=== PATIENT | female | born 1995 | race Caucasian/White ===

== ENCOUNTER → 2018-06-10 16:42 | Outpatient (CLI) | payer OTHER, SELFPAY | PROVIDERS: Family Provider Family Medicine; PCP Family Medicine; Visit Provider Family Medicine | DX: R55 Syncope and collapse (principal) | CPT/HCPCS: 36415; 84443 ==

== ENCOUNTER → 2018-11-25 | Outpatient (CLI) | payer OTHER, SELFPAY ==
[2018-11-25 15:42] LABS: Absolute Lymphocyte Count 1.49 X10^3/ul (0.83-4.51); Absolute Neutrophil Count 3.5 X10^3/uL (2.0-7.7); Basophil# 0.01 X10^3/uL; Basophil% 0.2 % (0-1); Eosinophil# 0.13 X10^3/uL; Eosinophils% 2.4 % (0-5); Hematocrit 40.6 % (37-47); Hemoglobin 13.6 g/dl (12.0-15.0); Lymphocyte # 1.49 X10^3/ul (4.0); Lymphocyte % 27.1 % (19-41); Mean Corp Hgb Conc 33.5 g/gl (32-36); Mean Corpuscular Hgb 29.7 pg (27.0-32.0); Mean Corpuscular Volume 88.6 fL (81-99); Mean Platelet Vol. 8.7 fl (6.2-12.0); Monocyte# 0.41 X10^3/uL; Monocyte% 7.5 % (0-10); Neutrophil # 3.45 X10^3/uL (2.7-7.7); Neutrophil % 62.6 % (47-70); Platelet Count 416 K/mm3 (150-450); RBC Distribution Width CV 12.1 % (11.6-14.6); RBC Distribution Width SD 38.7 fl (35.1-43.9); Red Blood Count 4.58 M/mm3 (4.2-5.4); White Blood Count 5.5 K/mm3 (4.4-11.0)
[2018-11-25 15:43] LABS: AST(SGOT) 17 U/L (15-37); Alanine Aminotransfer ALT/SGPT 19 U/L (13-56); Albumin, Serum 3.9 g/dL (3.2-5.0); Alkaline Phosphatase 95 U/L (45-117); Anion Gap 9 (5-15); BUN 12 mg/dL (7-18); BUN/Creat Ratio 11.9 RATIO (10-20); CRP < 2.90 mg/L (0.0-3.0); Calcium,Total 8.8 mg/dL (8.5-10.1); Chloride 103 mmol/L (98-107); Creatinine, Serum 1.01 mg/dL (0.55-1.02); EST Glomerular Filtration Rate 72 mL/min (>60); Est Glom Filt Rate - Afr Amer 87 mL/min (>60); Globulin 3.8 g/dL (2.2-4.2); Glucose 84 mg/dL (74-106); POSITIVE COUNT NO; POSITIVE DIFFERENTIAL NO; POSITIVE MORPHOLOGY NO; Potassium 4.1 mmol/L (3.5-5.1); Protein, Total 7.7 g/dL (6.4-8.2); Sodium Level 138 mmol/L (136-145)
[2018-11-25 15:44] LABS: hCG Titer Quant., Serum < 1 mIU/mL (1-3)
== END | disposition home or self-care (01) ==
LOC: BFHLAB 12:00
PROVIDERS: Family Provider Family Medicine; PCP Family Medicine; Visit Provider Family Medicine
DX: R11.0 Nausea (principal); R10.9 Unspecified abdominal pain
CPT/HCPCS: 36415; 80053; 84702; 85025; 86140

== ENCOUNTER → 2019-08-09 | Outpatient (CLI) | payer OTHER, SELFPAY | END | disposition home or self-care (01) | LOC: LABSPEC 16:29 | PROVIDERS: PCP Family Medicine; Referring Provider Family Medicine; Visit Provider Family Medicine | DX: R50.9 Fever, unspecified (principal); R05 Cough | CPT/HCPCS: 87633 ==

== ENCOUNTER → 2020-03-01 13:58 | Outpatient (CLI) | payer OTHER, SELFPAY ==
[2020-03-01 15:40] LABS: Absolute Lymphocyte Count 1.76 X10^3/uL (0.83-4.51); Absolute Neutrophil Count 2.5 X10^3/uL (2.0-7.7); Basophil# 0.03 X10^3/uL; Basophil% 0.6 % (0-1); Eosinophil# 0.29 X10^3/uL; Eosinophils% 5.8 % (0-5); Hematocrit 38.3 % (37-47); Hemoglobin 12.1 g/dL (12.0-15.0); Lymphocyte # 1.76 X10^3/ul (4.0); Lymphocyte % 35.2 % (19-41); Mean Corp Hgb Conc 31.6 g/dL (32-36); Mean Corpuscular Hgb 27.7 pg (27.0-32.0); Mean Corpuscular Volume 87.6 fL (81-99); Mean Platelet Vol. 9.4 fl (6.2-12.0); Monocyte# 0.41 X10^3/uL; Monocyte% 8.2 % (0-10); NRBC Flagged by Analyzer 0 % (0-5); Platelet Count 438 K/mm3 (150-450); RBC Distribution Width CV 13.7 % (11.6-14.6); RBC Distribution Width SD 44.4 fl (35.1-43.9); Red Blood Count 4.37 M/mm3 (4.2-5.4)
[2020-03-01 16:25] LABS: Color, Urine Yellow (Yellow); Glucose, Dipstick Normal (Normal); Ketone-Dipstick 5 mg/dl (Negative); Leukocyte Esterase-Dipstick 100 /ul (Negative); Nitrite-Dipstick Negative (Negative); Occult Blood-Urine 10 /ul (Negative); Protein-Dipstick 15 mg/dl (Negative); Urine Bilirubin Dipstick Negative (Negative); Urine Clarity Sl. Cloudy (Clear); Urine Urobilinogen Normal (Normal)
[2020-03-01 18:08] LABS: Chlamydia Trachomatis by PCR Negative (Negative); Neisserai gonorrhoeae by PCR Negative (Negative); Probe Check PASS; Sample Adequacy Control PASS; Specimen Processing Control PASS
[2020-03-02 09:40] LABS: HIV - WCH Non-Reactive (Nonreactive); Hepatitis B Surface Antigen Non-Reactive (Nonreactive); Hepatitis C Antibody Non-Reactive (Nonreactive); Rubella IgG 55.5 IU/mL
[2020-03-08 01:33] LABS: Prenatal RPR NONREACTIVE (NONREACTIVE)
== END ==
PROVIDERS: PCP Family Medicine; Visit Provider Obstetrics & Gynecology
DX: Z34.81 Encounter for supervision of other normal pregnancy, first trimester (principal); Z11.3 Encounter for screening for infections with a predominantly sexual mode of transmission
CPT/HCPCS: 36415; 81002; 85025; 86703; 86762; 86803; 87077; 87086; 87088; 87186; 87340; 87491; 87591

== ENCOUNTER → 2020-03-05 10:51 | Outpatient (CLI) | payer OTHER, SELFPAY ==
[2020-03-05 11:48] LABS: hCG Titer Quant., Serum 189 mIU/mL (1-3)
== END ==
PROVIDERS: PCP Family Medicine; Visit Provider Obstetrics & Gynecology
DX: O20.0 Threatened abortion (principal); Z3A.00 Weeks of gestation of pregnancy not specified
CPT/HCPCS: 36415; 84702

== ENCOUNTER → 2020-03-07 09:19 | Outpatient (CLI) | payer OTHER, SELFPAY ==
[2020-03-07 10:50] LABS: hCG Titer Quant., Serum 76 mIU/mL (1-3)
== END ==
PROVIDERS: PCP Family Medicine; Visit Provider Obstetrics & Gynecology
DX: O20.0 Threatened abortion (principal); Z3A.00 Weeks of gestation of pregnancy not specified
CPT/HCPCS: 36415; 84702

== ENCOUNTER → 2020-03-09 13:56 | Outpatient (CLI) | payer OTHER, SELFPAY ==
[2020-03-09 15:39] LABS: hCG Titer Quant., Serum 33 mIU/mL (1-3)
== END ==
PROVIDERS: PCP Family Medicine; Visit Provider Obstetrics & Gynecology
DX: O20.0 Threatened abortion (principal); Z3A.00 Weeks of gestation of pregnancy not specified
CPT/HCPCS: 36415; 84702

== ENCOUNTER → 2020-03-15 16:00 | Outpatient (CLI) | payer OTHER, SELFPAY ==
[2020-03-15 16:18] LABS: Hematocrit 39.7 % (37-47); Hemoglobin 12.7 g/dL (12.0-15.0); Mean Corpuscular Volume 87.6 fL (81-99); Mean Platelet Vol. 8.4 fl (6.2-12.0); Platelet Count 398 K/mm3 (150-450); RBC Distribution Width CV 13.4 % (11.6-14.6); RBC Distribution Width SD 42.7 fl (35.1-43.9); Red Blood Count 4.53 M/mm3 (4.2-5.4); White Blood Count 5.1 K/mm3 (4.4-11.0)
[2020-03-15 17:29] LABS: hCG Titer Quant., Serum 6 mIU/mL (1-3)
[2020-03-15 17:36] LABS: Anion Gap 6 (5-15); BUN 9 mg/dL (7-18); BUN/Creat Ratio 10.1 RATIO (10-20); Calcium,Total 9.1 mg/dL (8.5-10.1); Chloride 107 mmol/L (98-107); EST Glomerular Filtration Rate 82 mL/min (>60); Est Glom Filt Rate - Afr Amer 99 mL/min (>60); Glucose 90 mg/dL (74-106); Potassium 3.5 mmol/L (3.5-5.1); Sodium Level 140 mmol/L (136-145); T4 Free Direct 0.88 ng/dL (0.76-1.46); Thyroid Stim Hormone (TSH) 1.39 uIU/mL (0.358-3.74)
== END ==
PROVIDERS: PCP Family Medicine; Visit Provider Obstetrics & Gynecology
CPT/HCPCS: 36415; 80048; 84439; 84443; 84702; 85027

== ENCOUNTER 2020-03-24 21:25 | Emergency (ER) | payer OTHER, SELFPAY ==
[2020-03-24 21:26] VITALS: BP 159/96; PULSE 88; RESP 16; TEMP 36.2; O2SAT 100; BMI 23.8
--- NOTE | 2020-03-24 21:34 | RAD_ITS ---
STUDY: X-RAY - RIGHT WRIST REASON FOR EXAM: Female, 25 years old. Trauma pain TECHNIQUE: 3 view(s) of the wrist were obtained. COMPARISON: None. FINDINGS: The bones of the wrist are intact and located. Mineralization is normal. Soft tissues are intact. RAD/Wrist min 3 Views IMPRESSION: 1. Unremarkable wrist. Electronically Signed: Juanito Gabriel, at 21:55 EDT Tel , Service support ,
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
--- NOTE | 2020-03-24 21:40 | RAD_ITS ---
STUDY: X-RAY - RIGHT HAND REASON FOR EXAM: Female, 25 years old. Trauma pain in the hand TECHNIQUE: 3 view(s) of the hand. COMPARISON: None. FINDINGS: Normal radiocarpal articulation. Normal distal radioulnar joint. Normal visualized carpal bones. Normal carpal articulations Normal carpometacarpal articulation of the thumb. Normal second through fifth carpometacarpal joints. Normal metacarpi. Normal metacarpophalangeal joint of the thumb. Normal interphalangeal joint of the thumb. Normal proximal and distal phalanges of the thumb. Normal metacarpophalangeal joints of the second through fifth fingers. Normal proximal and distal interphalangeal joints of the second through fifth fingers. Normal phalanges of the second through fifth fingers. The soft tissue structures are unremarkable. RAD/Hand Min 3 Views IMPRESSION: Normal x-ray examination of the hand. Electronically Signed: Juanito Gabriel, at 21:55 EDT Tel , Service support ,
== END 2020-03-24 22:15 | disposition home or self-care (01) ==
LOC: ED 22:21
PROVIDERS: Emergency Provider Emergency Medicine; PCP Family Medicine
DX: S63.501A Unspecified sprain of right wrist, initial encounter (principal); V40.6XXA Car passenger injured in collision with pedestrian or animal in traffic accident, initial encounter; Y93.9 Activity, unspecified; Y92.9 Unspecified place or not applicable; M79.7 Fibromyalgia; L40.50 Arthropathic psoriasis, unspecified; Z79.899 Other long term (current) drug therapy
CPT/HCPCS: 73110; 73130; 99282

== ENCOUNTER → 2020-04-03 14:10 | Outpatient (CLI) | payer OTHER, SELFPAY ==
[2020-03-24 21:26] VITALS: BMI 23.8
[2020-04-03 17:26] LABS: hCG Titer Quant., Serum 130 mIU/mL (1-3)
== END ==
PROVIDERS: PCP Family Medicine; Visit Provider Family Medicine
DX: N91.2 Amenorrhea, unspecified (principal)
CPT/HCPCS: 36415; 84702

== ENCOUNTER → 2020-04-05 14:10 | Outpatient (CLI) | payer OTHER, SELFPAY ==
[2020-03-24 21:26] VITALS: BMI 23.8
[2020-04-05 17:41] LABS: hCG Titer Quant., Serum 416 mIU/mL (1-3)
== END ==
PROVIDERS: PCP Family Medicine; Visit Provider Family Medicine
DX: N91.2 Amenorrhea, unspecified (principal)
CPT/HCPCS: 36415; 84702

== ENCOUNTER → 2020-04-12 15:21 | Outpatient (CLI) | payer OTHER, SELFPAY ==
[2020-03-24 21:26] VITALS: BMI 23.8
[2020-04-12 16:39] LABS: hCG Titer Quant., Serum 3580 mIU/mL (1-3)
== END ==
PROVIDERS: PCP Family Medicine; Visit Provider Obstetrics & Gynecology
DX: O20.0 Threatened abortion (principal); Z3A.00 Weeks of gestation of pregnancy not specified
CPT/HCPCS: 36415; 84702

== ENCOUNTER → 2020-04-14 09:28 | Outpatient (CLI) | payer OTHER, SELFPAY ==
[2020-03-24 21:26] VITALS: BMI 23.8
[2020-04-14 10:59] LABS: hCG Titer Quant., Serum 3406 mIU/mL (1-3)
== END ==
PROVIDERS: PCP Family Medicine; Referring Provider Obstetrics & Gynecology; Visit Provider Obstetrics & Gynecology
DX: O20.0 Threatened abortion (principal); Z3A.00 Weeks of gestation of pregnancy not specified
CPT/HCPCS: 36415; 84702

== ENCOUNTER → 2020-04-17 08:51 | Outpatient (CLI) | payer OTHER, SELFPAY ==
[2020-03-24 21:26] VITALS: BMI 23.8
[2020-04-17 14:18] LABS: hCG Titer Quant., Serum 4133 mIU/mL (1-3)
== END ==
PROVIDERS: PCP Family Medicine; Visit Provider Obstetrics & Gynecology
DX: O20.0 Threatened abortion (principal); Z3A.00 Weeks of gestation of pregnancy not specified
CPT/HCPCS: 36415; 84702

== ENCOUNTER → 2020-04-24 | Outpatient (CLI) | payer OTHER, SELFPAY ==
[2020-04-26 03:07] LABS: Chlamydia By Nucleic Acid AMP Negative (Negative)
[2020-04-26 08:41] LABS: Gonococcus By Nucleic Acid AMP Negative (Negative)
== END | disposition home or self-care (01) ==
LOC: LABSPEC 11:44
PROVIDERS: PCP Family Medicine; Visit Provider Obstetrics & Gynecology
DX: Z11.3 Encounter for screening for infections with a predominantly sexual mode of transmission (principal)
CPT/HCPCS: 87491; 87591

== ENCOUNTER 2020-04-28 04:19 | Emergency (ER) | payer OTHER, SELFPAY ==
[2020-04-28 04:20] VITALS: BP 120/81; PULSE 100; RESP 18; TEMP 36.8; O2SAT 98; BMI 23.9
--- NOTE | 2020-04-28 04:38 | US_ITS ---
STUDY: FIRST TRIMESTER OBSTETRICAL ULTRASOUND REASON FOR EXAM: Female, 25 years old bleeding -hcg 4112 LMP: 03/12/2020 TECHNIQUE: Transvaginal TECHNICAL QUALITY: Adequate. PRIOR ULTRASOUND: None. FINDINGS: There is no demonstrated intrauterine gestational sac. The estimated gestation age (EGA) by LMP is 6 weeks, 5 days. The estimated date of delivery (NINFA) by LMP is 12/17/2020. The uterus measures 9.3 x 6.1 x 4.3 cm.. There is no demonstrated uterine fibroid. The cervix is closed. Endometrium is thickened up to 1.7 cm. There is no visualized intrauterine . There is a small cystic low attenuation towards the cervix/endometrial canal measuring 2.7 mm which may represent a small nabothian cysts The right ovary measures 1.9 x 1.9 x 1.2 cm. There is no right ovarian cyst. There is no visualized right adnexal mass or complex lesion. The left ovary measures 3.0 x 1.9 x 1.9 cm. There is no left ovarian cyst. There is no visualized left adnexal mass or complex lesion. There is no fluid in the cul de sac. US/Transvaginal w/Preg US IMPRESSION: At the time of this study there is no visualized intrauterine . Endometrium is thickened up to 1.7 cm. Thickened endometrium can be associated with early intrauterine in the appropriate setting however it should be noted that the history describes a confirmed IUP at doctor''s office which is not definitively identified on this study. A small nabothian cyst suggested recommend correlation with beta hCG. Electronically Signed: Columba Potter MD at 6:24 EST Tel , Service support ,
--- NOTE | 2020-04-28 04:40 | ED.VISSUMM ---
- ER Visit Summary Date of Service: 04/28/20 Chief Complaint: Vaginal bleeding in approximately 6 weeks History of Present Illness: The patient is a 25 F reportedly 6 weeks . Started having light vaginal bleeding on on . Stopped on Thursday. Then resumed and is heavier today. With small clots. Mild cramping. No dysuria. No fever. No other complaints. Patient is G3, P1 with 1 prior miscarriage March this year. She denies any discharge. Physical Examination: Young female no acute distress. Vital signs stable afebrile. H EENT exam unremarkable. Neck nontender. Lungs clear to auscultation bilaterally. Heart regular rhythm no murmur. Abdomen soft nontender normal bowel sounds no peritoneal signs. Moving all 4 extremities. No edema. Neurologically awake and alert with no focal motor deficits. Pelvic exam done female nurse present in room. Speculum exam shows blood with a few clots and what appears to be tissue in the vaginal vault. This was extracted and will be sent to the lab. There is no bright red blood or active bleeding. On bimanual exam there was no uterine or adnexal tenderness. Test Results: Prior labs show blood type of O+. Quantitative hCG was 4112. Previously on April 17 it was 4133. TA TV pelvic ultrasound read by the radiologist shows no IUP. Thickened endometrium. Findings consistent with a spontaneous miscarriage. Emergency Department Course and Treatment: Concern for miscarriage. Pelvic ultrasound is being ordered. Quantitative hCG pending. Treatment Plan: Follow-up with her WINDOW DRAPER. Tylenol Motrin for pain. Plenty of fluids. Return if heavy bleeding, fever or feeling worse. I spoke to Dr. Stacy No at 6:55 AM university relations vice president for [employer]. They will follow the patient up. Disposition: Discharge Impression: Spontaneous miscarriage at approximately 6 - 7 weeks This note was generated with [employer] dictation software. It may contain incorrect words, spelling, and punctuation that were not noted in review of the chart prior to signing ED Disposition - Plan for ED Patient: Disposition: Home or Assisted Living Instructions: Miscarriage Referrals: Uriah No MD [STAFF PHYSICIAN] - As soon as possible Additional Instructions: Tylenol and/or Motrin for pain. Plenty of fluids and rest. Call follow-up with your WINDOW DRAPER physician on Thursday. Return to the emergency department if heavy vaginal bleeding, fever or feeling worse. You will have some more bleeding until this is completed.
[2020-04-28 05:21] LABS: hCG Titer Quant., Serum 4112 mIU/mL (1-3)
--- NOTE | 2020-04-28 06:04 | DCINST.ED_ITS ---
ED Disposition - Plan for ED Patient: Disposition: Home or Assisted Living Instructions: Miscarriage Referrals: Uriah No MD [STAFF PHYSICIAN] - As soon as possible Additional Instructions: Tylenol and/or Motrin for pain. Plenty of fluids and rest. Call follow-up with your SENIOR ENGINEERING TECHNICIAN physician on Thursday. Return to the emergency department if heavy vaginal bleeding, fever or feeling worse. You will have some more bleeding until this is completed.
--- NOTE | 2020-04-28 06:45 | ED.DEP ---
ED Disposition - Plan for ED Patient: Disposition: Home or Assisted Living Instructions: Miscarriage Referrals: Uriah No MD [STAFF PHYSICIAN] - As soon as possible Additional Instructions: Tylenol and/or Motrin for pain. Plenty of fluids and rest. Call follow-up with your ANIMAL MAINTENANCE SUPERVISOR physician on Thursday. Return to the emergency department if heavy vaginal bleeding, fever or feeling worse. You will have some more bleeding until this is completed.
[2020-04-28 06:58] VITALS: BP 108/76; PULSE 59; RESP 16; O2SAT 100
== END 2020-04-28 07:06 | disposition home or self-care (01) ==
PROVIDERS: Emergency Provider Emergency Medicine; PCP Family Medicine
DX: O03.9 Complete or unspecified spontaneous abortion without complication (principal); F41.9 Anxiety disorder, unspecified; F32.9 Major depressive disorder, single episode, unspecified; L40.50 Arthropathic psoriasis, unspecified; Z79.899 Other long term (current) drug therapy
CPT/HCPCS: 76817; 84702; 99282

== ENCOUNTER → 2020-05-08 16:16 | Outpatient (CLI) | payer OTHER, SELFPAY ==
[2020-04-28 04:20] VITALS: BMI 23.9
[2020-05-08 17:40] LABS: Hematocrit 37.7 % (37-47); Hemoglobin 12.4 g/dL (12.0-15.0); Mean Corp Hgb Conc 32.9 g/dL (32-36); Mean Corpuscular Hgb 29.1 pg (27.0-32.0); Mean Corpuscular Volume 88.5 fL (81-99); Mean Platelet Vol. 9.2 fl (6.2-12.0); Platelet Count 424 K/mm3 (150-450); RBC Distribution Width SD 38.5 fl (35.1-43.9); Red Blood Count 4.26 M/mm3 (4.2-5.4); White Blood Count 7.1 K/mm3 (4.4-11.0)
[2020-05-08 18:56] LABS: hCG Titer Quant., Serum 50 mIU/mL (1-3)
[2020-05-08 19:05] LABS: T4 Free Direct 1.04 ng/dL (0.76-1.46); Thyroid Stim Hormone (TSH) 1.65 uIU/mL (0.358-3.74)
== END ==
PROVIDERS: PCP Family Medicine; Visit Provider Obstetrics & Gynecology
DX: O03.9 Complete or unspecified spontaneous abortion without complication (principal); R53.83 Other fatigue
CPT/HCPCS: 36415; 84439; 84443; 84702; 85027

== ENCOUNTER → 2020-05-31 | Outpatient (CLI) | payer OTHER, SELFPAY ==
--- NOTE | 2020-06-02 | CYST_PTH ---
PATIENT: JORJE FLOWER LOC: [facility] U#:[id number] AGE/SX: 25/F ROOM: RE05/31/[address]: Dr. Tamar Haji DO : 1995 BED: DIS: 05/31/2020 SPEC #: [id number] RECD: 06/04/20 07:56 STATUS: JANEL CELIO #: [id number] [facility]ITA: 06/02/20 00:[address]: Tamar Haji DEPT: SURGICAL PATHOLOGY RECD BY: Neftali Braswell ENTERED: 06/04/20 07:57 SP TYPE: Cyst OTHR DR: Dr. Samira Germain MD Tissues: CYST Procedures: Surgery Specimen Level III HEADER OPERATION: Excision right posterior scapula PRE-OP DIAGNOSIS: Basal cell vs sebaceous cyst TISSUE SUBMITTED: Right posterior scapula MICROSCOPIC DIAGNOSIS Right posterior scapula lesion, excisional biopsy: Ruptured epidermal inclusion cyst with associated chronic inflammation and foreign body giant cell reaction. SJ:manuel 06/05/2020 MICROSCOPIC DESCRIPTION Slides are reviewed. GROSS DESCRIPTION Received in fixative is one container labeled with the patient's name and designated right posterior scapula. The specimen consists of an irregular fragment of espinal skin measuring 1.3 x 0.5 cm. No cutaneous lesions are identified. The specimen is inked, bisected along its long axis and totally submitted in one cassette. / AM:manuel 06/04/2020 TC:5 CPT: 45694
== END | disposition home or self-care (01) ==
LOC: LABSPEC 07:35
PROVIDERS: PCP Family Medicine; Referring Provider Family Medicine; Visit Provider Family Medicine
DX: L72.0 Epidermal cyst (principal)
CPT/HCPCS: 88304

== ENCOUNTER → 2020-07-16 13:38 | Outpatient (CLI) | payer OTHER, SELFPAY ==
[2020-07-16 15:38] LABS: hCG Titer Quant., Serum < 1 mIU/mL (1-3)
== END ==
PROVIDERS: PCP Family Medicine; Visit Provider Family Medicine
DX: N91.2 Amenorrhea, unspecified (principal)
CPT/HCPCS: 36415; 84702

== ENCOUNTER 2020-09-01 12:12 | Emergency (ER) | payer OTHER, SELFPAY ==
[2020-09-01 12:13] VITALS: BP 124/72; PULSE 89; RESP 17; TEMP 36.7; O2SAT 96; BMI 24.0
--- NOTE | 2020-09-01 12:41 | RAD_ITS ---
EXAM: XR CERVICAL SPINE, 2 OR 3 VIEWS CLINICAL INDICATION: felt a pop in the neck this morning when she stretched, neck pain and stiffness now TECHNIQUE: Frontal and lateral views of the cervical spine. This report was created using [employer] report [employer] technology. COMPARISON: None. FINDINGS: VERTEBRAE: Mild straightening of the C-spine curve. Preserved vertebral body height. No acute fracture. No spondylolisthesis. No significant facet arthropathy. DISC SPACES: Unremarkable. Disc spaces are maintained. SOFT TISSUES: Unremarkable. No prevertebral soft tissue widening. LUNG APICES: Clear. RAD/Cerv Spine 2 or 3 Views IMPRESSION: Mild straightening of the cervical spine curve otherwise normal C-spine radiographs. Electronically Signed: Berry Turner MD at 13:08 EDT , Service support ,
[2020-09-01] MEDS: Naproxen 500 MG Tablet PO (12:47)
--- NOTE | 2020-09-01 13:41 | ED.VISSUMM ---
- ER Visit Summary Date of Service: 09/01/20 Chief Complaint: Neck pain History of Present Illness: The patient is a 25 F who presents with neck pain that began today. Patient states her pain is sharp. Patient states pain is over the left side of her neck. Patient states she was stretching this morning when she got out of bed and felt a pop. Patient states her pain radiates into her left shoulder and trapezius area. Patient states her pain is worse with any movement. Patient states her pain improves whenever she remains still. Patient denies any paresthesias or weakness. Patient is to headache but states she has chronic daily migraine headaches and this is typical. Physical Examination: Vital signs are stable. Patient is afebrile. Patient is in no acute distress. Musculoskeletal exam reveals tenderness over the left cervical paraspinal muscles. There is some mild midline tenderness. There is also tenderness and spasm over the left trapezius muscles. There is no tenderness over the shoulder joint itself. There is no bony crepitance or step-off. There is no edema or ecchymosis. Range of motion was limited in all motions of the cervical spine secondary to pain. Strength is 5/5 bilaterally upper extremities. There are no sensory deficits. Test Results: X-rays of the cervical spine were obtained. There are 3 views. There is no acute fracture or spondylolisthesis. There is some straightening of the cervical lordosis. Radiologist also interpreted the x-ray and agrees. Emergency Department Course and Treatment: Patient was given a dose of Naprosyn here. Patient was advised of her x-ray findings. Patient was instructed use ice to the area. Patient was instructed to do gentle range of motion exercises. Patient was given a prescription for Naprosyn. Patient was instructed to follow-up with her primary care physician in 5 to 7 days. Patient understood and was agreeable with the plan. All questions were answered. Disposition: Discharge home Impression: 1. Acute cervical strain This note was generated with [employer] dictation software. It may contain incorrect words, spelling, and punctuation that were not noted in review of the chart prior to signing ED Disposition - Plan for ED Patient: Disposition: Home or Assisted Living Diagnosis: Acute cervical myofascial strain Instructions: ED Neck Sprain or Strain Prescriptions: Naproxen [Naprosyn] 500 mg PO BID PRN #20 tablet Transmission Status: Pending to [facility] Referrals: Tamar Haji DO [Primary Care Provider] - 5-7 Days
== END 2020-09-01 13:56 | disposition home or self-care (01) ==
PROVIDERS: Emergency Provider Emergency Medicine; PCP Family Medicine
DX: S16.1XXA Strain of muscle, fascia and tendon at neck level, initial encounter (principal); X58.XXXA Exposure to other specified factors, initial encounter; Y93.9 Activity, unspecified; Y92.9 Unspecified place or not applicable; F41.9 Anxiety disorder, unspecified; F32.9 Major depressive disorder, single episode, unspecified; J45.909 Unspecified asthma, uncomplicated; Z79.899 Other long term (current) drug therapy
CPT/HCPCS: 72040; 99282

== ENCOUNTER → 2020-10-23 14:38 | Outpatient (CLI) | payer OTHER, SELFPAY ==
[2020-10-23 16:19] LABS: Absolute Lymphocyte Count 1.08 X10^3/uL (0.83-4.51); Absolute Neutrophil Count 3.7 X10^3/uL (2.0-7.7); Basophil# 0.01 X10^3/uL; Basophil% 0.2 % (0-1); Eosinophil# 0.08 X10^3/uL; Eosinophils% 1.5 % (0-5); Hematocrit 38.7 % (37-47); Hemoglobin 12.5 g/dL (12.0-15.0); Lymphocyte # 1.08 X10^3/ul (0.83-4.51); Lymphocyte % 20.5 % (19-41); Mean Corp Hgb Conc 32.3 g/dL (32-36); Mean Corpuscular Hgb 28.2 pg (27.0-32.0); Mean Corpuscular Volume 87.2 fL (81-99); Mean Platelet Vol. 9.1 fl (6.2-12.0); Monocyte# 0.41 X10^3/uL; Monocyte% 7.8 % (0-10); NRBC Flagged by Analyzer 0 % (0-5); Neutrophil # 3.68 X10^3/uL (2.7-7.7); Neutrophil % 69.6 % (47-70); Platelet Count 418 K/mm3 (150-450); RBC Distribution Width CV 12.1 % (11.6-14.6); RBC Distribution Width SD 38.8 fl (35.1-43.9); Red Blood Count 4.44 M/mm3 (4.2-5.4); White Blood Count 5.3 K/mm3 (4.4-11.0)
[2020-10-23 17:28] LABS: Hemoglobin A1c 5.1 % (3.8-5.6)
[2020-10-24 08:54] LABS: HIV - WCH Non-Reactive (Nonreactive); Hepatitis B Surface Antigen Non-Reactive (Nonreactive); Hepatitis C Antibody Non-Reactive (Nonreactive); Rubella IgG Reactive (Nonreactive); Syphilis Antibodies Non-reactive
[2020-10-26 20:08] LABS: Chlamydia By Nucleic Acid AMP Negative (Negative)
[2020-10-27 14:27] LABS: HPV Reflexed? NOT INDICATED
[2020-10-27 15:08] LABS: Gonococcus By Nucleic Acid AMP Negative (Negative)
== END ==
PROVIDERS: PCP Family Medicine; Visit Provider Obstetrics & Gynecology
DX: Z32.01 Encounter for pregnancy test, result positive (principal); Z12.4 Encounter for screening for malignant neoplasm of cervix; Z11.3 Encounter for screening for infections with a predominantly sexual mode of transmission
CPT/HCPCS: 36415; 83036; 85025; 86703; 86762; 86780; 86803; 87086; 87088; 87340; 87491; 87591; 88175; G0145

== ENCOUNTER 2021-05-15 15:00 | Outpatient (RCR) | payer OTHER, SELFPAY ==
--- NOTE | 2021-05-01 12:58 | HP.PTEVAL ---
Patient's Visit Information JORJE FLOWER is a 26 year old F referred to Physical Therapy by Dr. Uriah No MD with a diagnosis of BACK/PELVIC PAIN. Date of Evaluation: 05/01/21 Physical Therapist: Mariya Ozuna PT, Cert MDT - Visit Plan Frequency: 2-3x /Week Duration: 4-6 Weeks Plan: *POOL NOT COVERED*. START SLOW. POSTURE CORRECTION/STRENGTHENING, INSTRUCTION IN APPROPRIATE BODY MECHANICS AND ACTIVITY MODIFICATIONS. DLS STARTING WITH A NEUTRAL SPINE PROGRESSING ROM TOLERATED. DERREK LE ROM, STRETCHING AND STRENGTHENING. HEP INSTRUCTION. 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 LIVES WITH PARENTS. 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 Disability: NO. Present symptoms: LOW BACK AND PELVIC PAIN. DERREK INTERMITTENT PROX THIGH PAIN. PATIENT DENIES DERREK LE NUMBNESS AND TINGLING. Present since: ABOUT A MONTH AGO. Pain Scale: WORST 7/10, LEAST 2/10. Currently: 2/10. Commenced as a result of: NO APPARENT REASON OTHER THAN . Symptoms at onset: LOW BACK. Worse: STRETCHING - REACHING UP, PICKING UP DAUGHTER (26 LBS), WALKING TOO MUCH, SITTING TOO LONG, STANDING TOO LONG. Better: LYING DOWN. Disturbed sleep: YES. Previous history/Previous treatment: HISTORY OF MILD INTERMITTENT LOW BACK PAIN THAT PATIENT RELATES TO HER PSORIATIC ARTHRITIS AND FIBROMYALGIA BUT DENIES NEEDING PROFESSIONAL TREATMENT FOR IT IN THE PAST. Treatment this episode: NONE. Coughing/sneezing/straining: POSITIVE. Gait: NORMAL UNLESS GOES TOO FAR THEN HAS TO SLOW DOWN AND SOMETIMES CAUSES LIMPING. Difficulty initiating urination: NO. DENIES LOSS OF BOWEL OR BLADDER CONTROL. Accidents: NO. Imaging: NO. PMHRecent major surgery: CHRONIC MIGRAINES, ASTHMA, FIBROMYALGIA, PSORIATIC ARTHRITS. - Objective Sitting/Standing Posture: POOR. Lordosis: NORMAL. Lateral shift: NO. Relevant shift: N/A. Active Correction of posture: WORSE ACTIVELY IN STANDING BUT BETTER PASSIVELY IN SITTING. Other Observations: THIS PATIENT AMBULATES INDEP'LY INTO PT WITHOUT ANY AD'S OR GROSS DEVIATIONS NOTED. Motor deficit: DERREK LE'S GROSSLY 5/5 WITH MMT'ING EXCEPT HIPS GRADED 3+/5 AND LIMITED BY PAIN. Sensory deficit: DERREK LE LIGHT TOUCH SENSATION GROSSLY INTACT AND SYMMETRICAL. ROM deficit: MILD DERREK LE HIP FLEXOR, HS AND GASTROC SOLEUS TIGHTNESS. Reflexes: NORMAL DERREK LE'S. Dural Signs: POSITIVE DERREK LE'S. Lumbar mvmt loss: flex - MOD. ext - MIN. R SG - MOD. L SG - MOD. LBP AT THE END OF THE AVAILABLE ROM ALL PLANES. Core strength: POOR. Palpation: NO ACUTE LUMBAR, PELVIC OR HIP TENDERNESS BUT DOES HAVE TENDERNESS IN THE RIGHT LOWER RIB AREA. OTHER: PATIENT IS GUARDED WITH ALL TESTING TODAY. TREATMENT: NEUROMUSCULAR REEDUCATION - RETRAINING OF MVMT AND POSTURE FOR SITTING, LYING AND STANDING ACTIVITIES. - Balance/Special Test Scores Oswestry Low Back Score: 25 - Goals Goal 1:: DECREASE C/O LOW BACK, PELVIC AND DERREK LE SX'S. Goal Time Frame: 4-6 Weeks Goal 2:: IMPROVE PERSONAL CARE, LIFTING, WALKING, SITTING, STANDING, SLEEP, SOCIAL LIFE, TRAVEL AND WORK/HOMEMAKING FUNCTION. Goal Time Frame: 4-6 Weeks Goal 3:: INSTRUCT IN PROPHYLAXIS - Anticipated Interventions Patient/Client Instruction: Educate patient on: Condition, Plan of Care, Risk Factors For the Purpose of:: To improve self management Therapeutic Exercise to Include: Strength training, Body mechanics, Postural training, Flexibilty training, Neuromotor development, Dynamic Lumbar Stabilization For the Purpose of:: To decrease pain, To improve muscle performance and motor function, To increase tolerance to activity/condition/position Thank you for the opportunity to evaluate your patient. For Medicare and Medicare HMO plans, please review the plan of care and approve it. It will need to be FAXED BACK to us at [phone] for Medicare purposes. For Medicare only, by signing this I certify the plan of care. Please let me know if there are questions or concerns regarding this plan of care. Physician Signature: Date:
--- NOTE | 2021-05-30 13:56 | HP.PT.NRP ---
JORJE FLOWER was seen in my office for initial evaluation on 05/01/21. The following Plan of Care was established for this patient: Initial Frequency: 2-3x /Week Initial Duration: 4-6 Weeks Patient/Client Instruction: Educate patient on: Condition, Plan of Care, Risk Factors For the Purpose of:: To improve self management Therapeutic Exercise to Include: Strength training, Body mechanics, Postural training, Flexibilty training, Neuromotor development, Dynamic Lumbar Stabilization For the Purpose of:: To decrease pain, To improve muscle performance and motor function, To increase tolerance to activity/condition/position This patient was last seen in our office . Pertinent comments regarding their Physical therapy will appear below: This patient has not returned to Physical Therapy and is appropriate to return to MD for further follow-up as needed. At this point I will be discontinuing this patient from physical therapy. I would be happy to see this patient again in the future if found appropriate by the physician. Thank you! Mariya Ozuna, PT, Cert MDT Balance/Gait/Functional tests - Balance/Special Test Scores Oswestry Low Back Score: 25
== END 2021-05-15 19:00 | disposition home or self-care (01) ==
LOC: PT 15:00
PROVIDERS: PCP Family Medicine; Referring Provider Obstetrics & Gynecology; Visit Provider Obstetrics & Gynecology
DX: O26.899 Other specified pregnancy related conditions, unspecified trimester (principal); O99.891 Other specified diseases and conditions complicating pregnancy; M54.9 Dorsalgia, unspecified; R10.2 Pelvic and perineal pain; Z3A.00 Weeks of gestation of pregnancy not specified
CPT/HCPCS: 97110; 97112; 97162; 97530

== ENCOUNTER 2021-06-02 13:20 | Outpatient (CLI) | payer OTHER, SELFPAY ==
[2021-06-02 13:27] VITALS: BP 126/74; PULSE 86; TEMP 36.2; O2SAT 99
[2021-06-02 13:33] VITALS: BMI 24.4
--- NOTE | 2021-06-06 07:55 | OB.TRI.HP_ITS ---
HPI - General HPI Narrative JORJE FLOWER, is a 26 F who presents as term gestation with decreased movement. PFSH PFSH Home Medications buspirone 10 mg PO DAILY 03/24/20 [History Last Taken 06/02/21 00:00] albuterol sulfate 2 puff INHALATION Q6H PRN PRN 04/28/20 [History Last Taken Unknown] albuterol sulfate 2.5 mg INHALATION Q6H PRN PRN 04/28/20 [History Last Taken Unknown] mometasone-formoterol 2 puff IH BID 04/28/20 [History Last Taken Unknown] Prenatabs FA 1 tab PO.IVFORM DAILY 06/02/21 [History Last Taken 06/02/21 00:00] hydroxyzine pamoate [Vistaril] 50 mg PO DAILY 06/02/21 [History Last Taken 06/02/21 00:00] ondansetron HCl [Zofran] 4 mg PO TID PRN 06/02/21 [History Last Taken Unknown] sertraline [Zoloft] 25 mg PO DAILY 06/02/21 [History Last Taken 06/02/21 00:00] Allergy/AdvReac Type Severity Reaction Status Date / Time green pepper Allergy Anaphylaxis Verified 03/24/20 21:29 Penicillins Allergy Hives Verified 03/24/20 21:29 adhesive AdvReac Rash Verified 04/28/20 04:23 fluoxetine [From Sarafem] AdvReac COUGH Verified 04/28/20 04:23 latex AdvReac Rash Verified 04/28/20 04:23 metoclopramide [From Reglan] AdvReac Other Verified 09/01/20 12:13 paroxetine [From Paxil] AdvReac MIGRAINES Verified 04/28/20 04:23 Social History Smoking Status: Never smoker NST FHR Rate Baby A NST Reactive:: Yes FHR Category:: Category I Assessment & Plan (1) Decreased movement during : PLAN: Term intrauterine with decreased movement. Reactive nonstress test. Patient released to home with routine instructions and follow- up.
== END 2021-06-02 23:59 | disposition home or self-care (01) ==
LOC: WPOUT 13:27 → WP 13:27
PROVIDERS: PCP Family Medicine; Visit Provider Obstetrics & Gynecology
DX: O36.8190 Decreased fetal movements, unspecified trimester, not applicable or unspecified (principal); Z3A.00 Weeks of gestation of pregnancy not specified
CPT/HCPCS: 59025; 59050; 99218; G0378

== ENCOUNTER 2021-06-10 17:04 | Inpatient (IN) | payer OTHER, SELFPAY ==
[2021-06-10] VITALS (14 sets, daily range): BP systolic 98–132; BP diastolic 60–82; PULSE 67–102; RESP 16; TEMP 36.5–37.2; O2SAT 100; BMI 24.4
[2021-06-10] MEDS: Lactated Ringers 1,000 ML 50 ML IV (17:10)
--- NOTE | 2021-06-10 17:17 | HP.PCM.OB_ITS ---
History and Physical Date of Admission: 06/10/21 HPI: 26-year-old G4, P1 at 38/6 weeks, NINFA 06/18/2021 by 7-week ultrasound, admitted in active labor. Ports contractions, denies leaking of fluid, vaginal bleeding. Reports movement. Spontaneous rupture of membranes was cervical exam to meconium fluid upon arrival to labor and delivery. Denies headache, vision changes, chest pain or shortness of breath, nausea or vomiting, diarrhea constipation, fevers chills, body aches. complicated by: Bicornuate uterus with and left horn, history of gestational diabetes in prior , history of rapid labor, sister with factor V Leiden and history of PE patient did not have time for testing plan for Lovenox 40 mg daily for 6 weeks. Depression. History of seizures, last 2018 has not seen neurology in a while. 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 Surgical history eye surgery in 2018, left thumb surgery, wisdom teeth extraction in 2011 Allergies: Adhesive causes rash Fluoxetine causes nasal congestion Latex causes rash and itching Paxil causes migraine Penicillin caused rash Reglan causes irritability Medications: Zoloft, Zofran, Vistaril, singulair, dulera Family history: Significant for sister with factor V Leiden and PE Social history: Denies tobacco, alcohol, drug use Review of systems: Negative otherwise stated as above Physical exam: Vital signs General: Uncomfortable with contractions HEENT: Normocephalic/atraumatic, PERRLA Cardiorespiratory: No increased effort, heart rate regular Abdomen: Soft, nontender, gravid Extremities: Minimal edema Neurologic: Cranial nerves II through XII grossly intact Musculoskeletal: Full range of motion and strength 5 out of 5 throughout all extremities Cervical exam: 9 cm per RN, rupture at time of cervical exam meconium fluid panel: GBS neg O pos HIV/Hep B/Hep C neg/neg/neg Rubella immune G/C neg Syphilis neg Labs pending FHR: 150/mod mikael/+accel/no decel [place]: q3 A/P: 26-year-old G4, P1 at 38/6 weeks, NINFA 06/18/2021 by 7-week ultrasound, admitted in active labor. complicated by: Bicornuate uterus with and left horn, history of gestational diabetes in prior , history of rapid labor, sister with factor V Leiden and history of PE patient did not have time for testing plan for Lovenox 40 mg daily for 6 weeks. Depression. History of seizures, last 2018 has not seen neurology in a while. -Admit, routine orders -Planned for 6w PP lovenox 40 mg daily -Continue antidepressant -Asthma - stable, rare use of inhalers -Hx of seizures. None recent
[2021-06-10 17:33] LABS: Absolute Neutrophil Count 7.3 X10^3/uL (2.0-7.7); Basophil# 0.02 X10^3/uL; Basophil% 0.2 % (0-1); Eosinophils% 0.9 % (0-5); Hematocrit 32.1 % (37-47); Hemoglobin 10.3 g/dL (12.0-15.0); Lymphocyte % 21.8 % (19-41); Mean Corp Hgb Conc 32.1 g/dL (32-36); Mean Corpuscular Hgb 25.3 pg (27.0-32.0); Mean Corpuscular Volume 78.9 fL (81-99); Mean Platelet Vol. 9.5 fl (6.2-12.0); Monocyte# 0.75 X10^3/uL; Monocyte% 7.1 % (0-10); NRBC Flagged by Analyzer 0.2 % (0-5); Neutrophil % 69.3 % (47-70); Platelet Count 407 K/mm3 (150-450); RBC Distribution Width CV 14.4 % (11.6-14.6); RBC Distribution Width SD 41.2 fl (35.1-43.9); Red Blood Count 4.07 M/mm3 (4.2-5.4); White Blood Count 10.5 K/mm3 (4.4-11.0)
[2021-06-10] MEDS: Oxytocin 30 units/NS 500 ml 30 UNITS/500 ML IV.SOLN 334 UNITS IV (17:42)
[2021-06-10] MEDS: miSOPROStol 200 MCG Tablet 1000 MCG RC (17:42)
--- NOTE | 2021-06-10 18:03 | EX.PCM.OBRPT ---
Maternal Data Information Final NINFA: 06/18/21 Final NINFA Source: US <20 weeks Vaginal Delivery Maternal Presentation Maternal Presentation: Active Labor and Spontaneous Rupture of Membranes Operative Information Date of Procedure: 06/10/21 Pre-Operative Diagnosis: Active labor, Meconium Fluid Post-Operative Diagnosis: Active labor, Meconium Fluid Surgery / Procedure Performed: Spontaneous Vaginal Delivery Type of Anesthesia: None Estimated Blood Loss: 700cc Findings Description of Procedure: Spontaneous vaginal delivery of viable female. No nuchal cord. Baby to mom. Cord clamped and cut. Spontaneous delivery of placenta. Right labial laceration, lidocaine injected. Repaired in usual fashion, hemostatic. Cytotec 1000 mcg placed rectally. A Gender: Female (1 minute): 9 (5 minute): 9
--- NOTE | 2021-06-10 18:08 | PCM.DC ---
Discharge Instructions Follow Up Care Test Results: Test results from this visit will be discussed in further detail at your follow-up appointment, if applicable. Discharge Plan Admission Admit Date/Time: 06/10/21 17:04 Attending Provider: Lorenza No Primary Care Provider: Tamar Haji Discharge Orders/Prescriptions Prescriptions: New enoxaparin [Lovenox] 40 mg/0.4 mL syringe 40 mg subcut DAILY 42 Days Qty: 16.8 RF: 0 Continued buspirone 5 MG tablet 10 mg PO DAILY RF: 0 albuterol sulfate 2.5 MG/3 ML solution for nebulization 2.5 mg INHALATION Q6H PRN PRN (Reason: SHORT OF BREATH) RF: 0 albuterol sulfate 1 PUFF inhaler 2 puff INHALATION Q6H PRN PRN (Reason: SHORT OF BREATH) RF: 0 mometasone-formoterol 13 GM HFA aerosol inhaler 2 puff IH BID RF: 0 ondansetron HCl 4 mg Tablet 4 mg PO TID PRN (Reason: Nausea) RF: 0 hydroxyzine pamoate [Vistaril] 50 mg Capsule 50 mg PO DAILY RF: 0 sertraline [Zoloft] 25 mg Tablet 25 mg PO DAILY RF: 0 Prenatabs FA 1 tab PO.IVFORM DAILY RF: 0 Referrals / Follow Up: Tamar Haji DO [Primary Care Provider] -
[2021-06-10] MEDS: Ibuprofen 600 MG Tablet PO (23:06)
[2021-06-11 04:00] VITALS: BP 104/66; PULSE 95; RESP 16; TEMP 36.6
[2021-06-11 05:27] LABS: Hematocrit 26.4 % (37-47); Hemoglobin 8.2 g/dL (12.0-15.0); Mean Corp Hgb Conc 31.1 g/dL (32-36); Mean Corpuscular Hgb 24.6 pg (27.0-32.0); Mean Platelet Vol. 9.1 fl (6.2-12.0); Platelet Count 314 K/mm3 (150-450); RBC Distribution Width CV 14.1 % (11.6-14.6); RBC Distribution Width SD 40.3 fl (35.1-43.9); Red Blood Count 3.34 M/mm3 (4.2-5.4); White Blood Count 17.3 K/mm3 (4.4-11.0)
--- NOTE | 2021-06-11 08:10 | PN.OBGYN_ITS ---
Subjective Subjective No overnight complaints. Pain well controlled. Objective Data Objective Data Vital Signs: Vital Signs Temp Pulse Resp BP Pulse Ox 97.8 F 95 16 104/66 100 06/11/21 04:00 06/11/21 04:00 06/11/21 04:00 06/11/21 04:00 06/10/21 23:19 Oxygen Delivery Method Room Air Weight: 142 lb 3.2 oz Body Mass Index (BMI) 24.4 Intake & Output: Intake and Output for Last 24 Hours 06/09/21 06/10/21 06/11/21 23:59 23:59 23:59 Intake Total 1153.72 / 1153.72 Balance 1153.72 / 1153.72 Lab / Micro Data Result Diagrams: 06/11/21 05:15 Labs: Laboratory Results - last 24 hr 06/10/21 17:10: WBC 10.5, RBC 4.07 L, Hgb 10.3 L, Hct 32.1 L, MCV 78.9 L, MCH 25.3 L, MCHC 32.1, RDW Std Deviation 41.2, RDW Coeff of [place] 14.4, Plt Count 407, MPV 9.5, Immature Gran % (Auto) 0.700, Neut % (Auto) 69.3, Lymph % (Auto) 21.8, [place] % (Auto) 7.1, Eos % (Auto) 0.9, Baso % (Auto) 0.2, Absolute Neuts (auto) 7.3, Absolute Lymphs (auto) 2.30, Nucleated RBC % 0.2 06/10/21 17:10: Blood Type O POSITIVE, Antibody Screen NEGATIVE 06/11/21 05:15: WBC 17.3 H, RBC 3.34 L, Hgb 8.2 L, Hct 26.4 L, MCV 79.0 L, MCH 24.6 L, MCHC 31.1 L, RDW Std Deviation 40.3, RDW Coeff of [place] 14.1, Plt Count 314, MPV 9.1 Micro: Microbiology 06/10/21 17:10 Nasal Secretion SARS-CoV-2 Antigen (Rapid) - Final Physical Exam Const alert, oriented x3, no apparent distress, average body habitus, healthy appearing and well nourished Exam Limitations: no limitations HEENT normocephalic and moist oral mucous membranes Head and Scalp: atraumatic Face and Sinus: normal facial exam Neck full ROM Resp normal respiratory effort, no retractions and no use of accessory muscles GI GI Narrative: Soft, nontender, uterus firm and below umbilicus Extremity normal to inspection, full ROM and no clubbing, cyanosis or edema Psych mental status grossly normal, affect normal, speech normal and activity/motor behavior normal Assessment & Plan (1) Vaginal delivery: PLAN: day 1. Breast-feeding. Pain well controlled. Likely h ome tomorrow
[2021-06-11 08:51] VITALS: BP 102/63; PULSE 79; RESP 16; TEMP 36.7
[2021-06-11] MEDS: Enoxaparin 40 MG/0.4 ML Syringe SC (10:25)
[2021-06-11] MEDS: Ibuprofen 600 MG Tablet PO (10:25)
[2021-06-11 12:00] VITALS: BP 83/53; PULSE 74; RESP 15; TEMP 36.2
--- NOTE | 2021-06-11 12:00 | NURSING ---
This nurse agrees with vital sign and assessment charted per [facility] Student.
--- NOTE | 2021-06-11 17:24 | PCM.DC ---
Discharge Instructions Diet Discharge Diet: No restrictions Activity Discharge Activity: Return to Normal Activity, May Drive and May Shower May resume sexual activity in: 4-6 weeks Weight Bearing Status: Weight bearing as tolerated Dressing / Incision Call your doctor if your incision/area has: Continuous Slow Oozing and Foul Smelling Discharge Call your doctor if you observe: Fever of 101 or Higher, Shortness of breath and Chest pain Follow Up Care Please Follow Up With: Uriah No MD When: 2-week telehealth, 4 to 6 weeks Test Results: Test results from this visit will be discussed in further detail at your follow-up appointment, if applicable. Discharge Plan Admission Admit Date/Time: 06/10/21 17:04 Attending Provider: Lorenza No Primary Care Provider: Tamar Haji Instructions Patient Instructions: After a Vaginal Discharge Orders/Prescriptions Prescriptions: New enoxaparin [Lovenox] 40 mg/0.4 mL syringe 40 mg subcut DAILY 42 Days Qty: 16.8 RF: 0 Continued buspirone 5 MG tablet 10 mg PO DAILY RF: 0 albuterol sulfate 2.5 MG/3 ML solution for nebulization 2.5 mg INHALATION Q6H PRN PRN (Reason: SHORT OF BREATH) RF: 0 albuterol sulfate 1 PUFF inhaler 2 puff INHALATION Q6H PRN PRN (Reason: SHORT OF BREATH) RF: 0 mometasone-formoterol 13 GM HFA aerosol inhaler 2 puff IH BID RF: 0 ondansetron HCl 4 mg Tablet 4 mg PO TID PRN (Reason: Nausea) RF: 0 hydroxyzine pamoate [Vistaril] 50 mg Capsule 50 mg PO DAILY RF: 0 sertraline [Zoloft] 25 mg Tablet 25 mg PO DAILY RF: 0 Prenatabs FA 1 tab PO.IVFORM DAILY RF: 0 Referrals / Follow Up: Tamar Haji DO [Primary Care Provider] - Disposition Discharge Orders: Discharge Patient (Routine); Ordered 06/11/21 Ordered By: Dr. Uriah No
[2021-06-11 18:35] VITALS: BP 102/63; PULSE 81; RESP 16; TEMP 36.7
[2021-06-11 20:08] VITALS: BP 96/72; PULSE 100; RESP 16; TEMP 36.7; O2SAT 99
== END 2021-06-11 20:35 | disposition home or self-care (01) | DRG 807 ==
LOC: WPOUT 17:05 → WP 17:06
PROVIDERS: Admitting Provider Student in an Organized Health Care Education/Training Program; PCP Family Medicine; Visit Provider Student in an Organized Health Care Education/Training Program
DX: O70.0 First degree perineal laceration during delivery (principal); Z37.0 Single live birth; O26.23 Pregnancy care for patient with recurrent pregnancy loss, third trimester; F32.A Depression, unspecified; J45.909 Unspecified asthma, uncomplicated; M79.7 Fibromyalgia; O99.344 Other mental disorders complicating childbirth; O77.0 Labor and delivery complicated by meconium in amniotic fluid; O34.03 Maternal care for unspecified congenital malformation of uterus, third trimester; Q51.3 Bicornate uterus; Z86.32 Personal history of gestational diabetes; Z3A.38 38 weeks gestation of pregnancy; Z86.711 Personal history of pulmonary embolism
CPT/HCPCS: 59025; 59050; 85025; 85027; 86850; 86900; 86901; 87426; 99218; J7120; G0378

== ENCOUNTER 2021-07-03 15:17 | Outpatient (CLI) | payer OTHER, SELFPAY ==
[2021-07-03 15:57] LABS: Hematocrit 32.6 % (37-47); Hemoglobin 9.5 g/dL (12.0-15.0); Mean Corp Hgb Conc 29.1 g/dL (32-36); Mean Corpuscular Hgb 23.7 pg (27.0-32.0); Mean Corpuscular Volume 81.3 fL (81-99); Mean Platelet Vol. 8.3 fl (6.2-12.0); Platelet Count 607 K/mm3 (150-450); RBC Distribution Width CV 15.4 % (11.6-14.6); RBC Distribution Width SD 45.3 fl (35.1-43.9); Red Blood Count 4.01 M/mm3 (4.2-5.4); White Blood Count 8.4 K/mm3 (4.4-11.0)
[2021-07-03 16:13] LABS: T4 Free Direct 0.82 ng/dL (0.76-1.46); Thyroid Stim Hormone (TSH) 0.65 uIU/mL (0.358-3.74)
== END 2021-07-03 23:59 | disposition short-term general hospital (02) ==
LOC: WOBLAB 15:19
PROVIDERS: PCP Family Medicine; Visit Provider Obstetrics & Gynecology
DX: R53.83 Other fatigue (principal)
CPT/HCPCS: 36415; 84439; 84443; 85027

== ENCOUNTER → 2022-10-09 | Outpatient (CLI) | payer BC, SELFPAY ==
--- NOTE | 2022-10-09 09:29 | BD_ITS ---
STUDY: DUAL ENERGY X-RAY ABSORPTIOMETRY / DXA REASON FOR EXAM: Female, 27 years old. Z89.52 TECHNIQUE: Bone Mineral Density (BMD) measurements of lumbar spine and bilateral hips were obtained. COMPARISON: None. FINDINGS: Lumbar Spine (L1-L4): g/cm2 (0.761) / T-score (-2.6) / Z-score (-2.6) Findings are suggestive of osteoporosis with a high fracture risk. Left Femur Total: g/cm2 (0.602) / T-score (-2.8) / Z-score (-2.8) Left Femoral Neck: g/cm2 (0.554) / T-score (-2.7) / Z-score (-2.6) Right Femur Total: g/cm2 (0.628) / T-score (-2.6) / Z-score (-2.6) Right Femoral Neck: g/cm2 (0.567) / T-score (-2.5) / Z-score (-2.5) BD/Dexa Bone Density Study IMPRESSION: The patient is considered osteoporotic as outlined below according to World [employer] Organization (WHO) criteria with a high fracture risk. Reference Information: The T-score is the number of standard deviations above or below the standard which is normal for young adults at their peak bone mineral density. The World Health Organization (WHO) interprets the T-scores as follows: Above -1 Normal bone density Between -1 and -2.5 Osteopenia Equal to / or below -2.5 Osteoporosis As a practical clinical guideline, osteopenia may be graded as follows: Mild -1 through -1.5 Moderate -1.6 through -2.0 Severe -2.1 through -2.4 The Z-score is the number of standard deviations above or below age-matched controls. A Z-score of less than -1.5 would be considered abnormal. References: 1. NIH Osteoporosis and Related Bone Diseases www osteo.org 2. International Society for Clinical Densitometry www iscd.org 3. National Osteoporosis Foundation www nof.org Electronically Signed: Kali Quevedo MD at 10:33 EDT ,
== END | disposition home or self-care (01) ==
LOC: OPBD 09:28
PROVIDERS: PCP Family Medicine; Referring Provider Family Medicine; Visit Provider Family Medicine
DX: Z87.81 Personal history of (healed) traumatic fracture (principal); Z91.89 Other specified personal risk factors, not elsewhere classified; Z79.52 Long term (current) use of systemic steroids
CPT/HCPCS: 77080

== ENCOUNTER → 2022-11-19 | Outpatient (CLI) | payer BC, SELFPAY ==
[2022-11-19 18:03] LABS: Vitamin B12 265 pg/mL (211-911)
== END | disposition home or self-care (01) ==
LOC: BFHLAB 15:56
PROVIDERS: PCP Family Medicine; Visit Provider Family Medicine
DX: M79.7 Fibromyalgia (principal); R53.83 Other fatigue
CPT/HCPCS: 36415; 82607

== ENCOUNTER → 2023-02-23 | Outpatient (CLI) | payer BC, SELFPAY ==
[2023-02-23 17:47] LABS: Absolute Lymphocyte Count 1.71 X10^3/uL (0.83-4.51); Basophil# 0.01 X10^3/uL; Basophil% 0.1 % (0-1); Eosinophil# 0.08 X10^3/uL; Eosinophils% 0.9 % (0-5); Hematocrit 39.3 % (37-47); Hemoglobin 13.1 g/dL (12.0-15.0); Lymphocyte # 1.71 X10^3/ul (0.83-4.51); Lymphocyte % 18.4 % (19-41); Mean Corp Hgb Conc 33.3 g/dL (32-36); Mean Corpuscular Hgb 29.7 pg (27.0-32.0); Mean Corpuscular Volume 89.1 fL (81-99); Mean Platelet Vol. 9.2 fl (6.2-12.0); Monocyte# 0.47 X10^3/uL; Monocyte% 5.1 % (0-10); NRBC Flagged by Analyzer 0 % (0-5); Neutrophil # 6.97 X10^3/uL (2.7-7.7); Platelet Count 406 K/mm3 (150-450); RBC Distribution Width CV 12.2 % (11.6-14.6); RBC Distribution Width SD 39.9 fl (35.1-43.9); Red Blood Count 4.41 M/mm3 (4.2-5.4); White Blood Count 9.3 K/mm3 (4.4-11.0)
[2023-02-23 18:09] LABS: Ferritin 166 ng/mL (8-252)
== END | disposition home or self-care (01) ==
LOC: MTLAB 16:40
PROVIDERS: PCP Family Medicine; Referring Provider Internal Medicine Endocrinology, Diabetes & Metabolism; Visit Provider Internal Medicine Endocrinology, Diabetes & Metabolism
DX: E55.9 Vitamin D deficiency, unspecified (principal); D64.9 Anemia, unspecified; M81.0 Age-related osteoporosis without current pathological fracture
CPT/HCPCS: 36415; 82306; 82728; 85025

== ENCOUNTER → 2024-03-18 | Outpatient (CLI) | payer BC, SELFPAY ==
[2024-03-18 10:36] LABS: Absolute Lymphocyte Count 1.38 X10^3/uL (0.83-4.51); Absolute Neutrophil Count 3.5 X10^3/uL (2.0-7.7); Basophil# 0.03 X10^3/uL; Basophil% 0.6 % (0-1); Eosinophil# 0.18 X10^3/uL; Eosinophils% 3.3 % (0-5); Hematocrit 40.8 % (37-47); Hemoglobin 13.3 g/dL (12.0-15.0); Lymphocyte # 1.38 X10^3/ul (0.83-4.51); Lymphocyte % 25.5 % (19-41); Mean Corp Hgb Conc 32.6 g/dL (32-36); Mean Corpuscular Hgb 29.3 pg (27.0-32.0); Mean Corpuscular Volume 89.9 fL (81-99); Mean Platelet Vol. 8.5 fl (6.2-12.0); Monocyte# 0.36 X10^3/uL; Monocyte% 6.7 % (0-10); NRBC Flagged by Analyzer 0 % (0-5); Neutrophil # 3.45 X10^3/uL (2.7-7.7); Neutrophil % 63.7 % (47-70); Platelet Count 417 K/mm3 (150-450); RBC Distribution Width CV 12.7 % (11.6-14.6); RBC Distribution Width SD 41.8 fl (35.1-43.9); Red Blood Count 4.54 M/mm3 (4.2-5.4); White Blood Count 5.4 K/mm3 (4.4-11.0)
[2024-03-18 11:22] LABS: Vitamin D,25 Hydroxy 72.7 ng/mL
[2024-03-18 11:35] LABS: AST(SGOT) 10 U/L (15-37); Alanine Aminotransfer ALT/SGPT 11 U/L (13-56); Albumin, Serum 3.6 g/dL (3.2-5.0); Alkaline Phosphatase 95 U/L (45-117); Anion Gap 3 (5-15); BUN 13 mg/dL (7-18); BUN/Creat Ratio 17.1 RATIO (10-20); Calcium,Total 9.3 mg/dL (8.5-10.1); Chloride 106 mmol/L (98-107); Creatinine, Serum 0.76 mg/dL (0.55-1.02); EST Glomerular Filtration Rate 96 mL/min (>60); Est Glom Filt Rate - Afr Amer 116 mL/min (>60); Estradiol 39.3 pg/mL; Follicle Stimulating Hormone 3.5 mIU/mL; Globulin 3.7 g/dL (2.2-4.2); Glucose 83 mg/dL (74-106); Luteinizing Hormone 2.5 mIU/mL; Potassium 3.8 mmol/L (3.5-5.1); Protein, Total 7.3 g/dL (6.4-8.2); Sodium Level 137 mmol/L (136-145)
[2024-03-24 00:07] LABS: PROEL- A/G Ratio 1.2 (0.7-1.7); PROEL- Albumin 3.7 g/dL (2.9-4.4); PROEL- Alpha-1 Globulin 0.2 g/dL (0.0-0.4); PROEL- Alpha-2 Globulin 0.8 g/dL (0.4-1.0); PROEL- Beta Globulin 1.1 g/dL (0.7-1.3); PROEL- Gamma Globulin 1.1 g/dL (0.4-1.8); PROEL- Globulin, Total 3.2 g/dL (2.2-3.9); PROEL- TOTAL PROTEIN 6.9 g/dL (6.0-8.5); PROEL-M-Spike Not Observed g/dL (Not Observed); PROLACTIN 9.4 ng/mL (4.8-33.4); Vitamin A, Retinol 33.1 ug/dL (18.9-57.3)
== END | disposition home or self-care (01) ==
PROVIDERS: PCP Family Medicine; Referring Provider Internal Medicine Endocrinology, Diabetes & Metabolism; Visit Provider Internal Medicine Endocrinology, Diabetes & Metabolism
DX: M81.0 Age-related osteoporosis without current pathological fracture (principal); E55.9 Vitamin D deficiency, unspecified
CPT/HCPCS: 36415; 80053; 82306; 82670; 83001; 83002; 84100; 84146; 84165; 84443; 84590; 85025

== ENCOUNTER → 2024-04-04 | Outpatient (CLI) | payer BC, SELFPAY ==
--- NOTE | 2024-04-04 14:15 | RAD_ITS ---
STUDY: X-RAY - LEFT HAND REASON FOR EXAM: Female, 29 years old. RULE OUT FRACTURE TECHNIQUE: 3 view(s) of the hand. COMPARISON: None. FINDINGS: Normal radiocarpal articulation. Normal distal radioulnar joint. Normal visualized carpal bones. Normal carpal articulations Normal carpometacarpal articulation of the thumb. Normal second through fifth carpometacarpal joints. Normal metacarpi. Normal metacarpophalangeal joint of the thumb. Normal interphalangeal joint of the thumb. Normal proximal and distal phalanges of the thumb. Normal metacarpophalangeal joints of the second through fifth fingers. Normal proximal and distal interphalangeal joints of the second through fifth fingers. Normal phalanges of the second through fifth fingers. The soft tissue structures are unremarkable. RAD/Hand Min 3 Views IMPRESSION: Normal x-ray examination of the hand. Electronically Signed: Kali Quevedo MD at 14:44 EST ,
== END | disposition home or self-care (01) ==
PROVIDERS: PCP Family Medicine; Referring Provider Nurse Practitioner Family; Visit Provider Nurse Practitioner Family
DX: M79.645 Pain in left finger(s) (principal)
CPT/HCPCS: 73130

== ENCOUNTER → 2024-04-05 | Outpatient (CLI) | payer BC, SELFPAY ==
[2024-04-05 14:21] LABS: Absolute Neutrophil Count 3.4 X10^3/uL (2.0-7.7); Basophil# 0.01 X10^3/uL; Basophil% 0.2 % (0-1); Eosinophil# 0.06 X10^3/uL; Eosinophils% 1.3 % (0-5); Hematocrit 38.9 % (37-47); Hemoglobin 12.9 g/dL (12.0-15.0); Mean Corp Hgb Conc 33.2 g/dL (32-36); Mean Corpuscular Hgb 29.4 pg (27.0-32.0); Mean Corpuscular Volume 88.6 fL (81-99); Monocyte# 0.38 X10^3/uL; NRBC Flagged by Analyzer 0 % (0-5); Neutrophil # 3.36 X10^3/uL (2.7-7.7); Neutrophil % 71.1 % (47-70); Platelet Count 323 K/mm3 (150-450); RBC Distribution Width CV 12.2 % (11.6-14.6); RBC Distribution Width SD 39.7 fl (35.1-43.9); Red Blood Count 4.39 M/mm3 (4.2-5.4); White Blood Count 4.7 K/mm3 (4.4-11.0)
[2024-04-05 14:24] LABS: Erythrocyte Sedimentation Rate 12 mm/hr (0-30)
[2024-04-05 14:46] LABS: PTHIN 42.9 pg/mL (18.4-80.1)
[2024-04-05 14:58] LABS: AST(SGOT) 10 U/L (15-37); Alanine Aminotransfer ALT/SGPT 13 U/L (13-56); Albumin, Serum 3.6 g/dL (3.2-5.0); Alkaline Phosphatase 100 U/L (45-117); Anion Gap 6 (5-15); BUN 12 mg/dL (7-18); BUN/Creat Ratio 14.2 RATIO (10-20); CRP < 2.90 mg/L (0.0-3.0); Calcium,Total 8.9 mg/dL (8.5-10.1); Chloride 104 mmol/L (98-107); Creatinine, Serum 0.84 mg/dL (0.55-1.02); EST Glomerular Filtration Rate 85 mL/min (>60); Est Glom Filt Rate - Afr Amer 103 mL/min (>60); Globulin 3.7 g/dL (2.2-4.2); Glucose 93 mg/dL (74-106); LDH 131 U/L (84-246); Potassium 3.9 mmol/L (3.5-5.1); Protein, Total 7.3 g/dL (6.4-8.2); Sodium Level 137 mmol/L (136-145)
[2024-04-12 12:09] LABS: ACCA 25 units (0-90); ALCA 14 units (0-60); AMCA 53 units (0-100); Albumin 3.5 g/dL (2.9-4.4); Alpha-1-Globulins 0.2 g/dL (0.0-0.4); Alpha-2-Globulins 0.8 g/dL (0.4-1.0); Cytoplasmic Ab (C-ANCA) <1:20 titer (Neg:<1:20); Endomysial Antibody IgA Negative (Negative); Gamma Globulin 1.1 g/dL (0.4-1.8); Immunoglobulin A 326 mg/dL (87-352); Immunoglobulin E 8 IU/mL (6-495); Immunoglobulin G 1071 mg/dL (586-1602); Immunoglobulin M 72 mg/dL (26-217); PROEL- TOTAL PROTEIN 6.7 g/dL (6.0-8.5); Perinuclear Ab (P-ANCA) <1:20 titer (Neg:<1:20); gASCA 0 units (0-50); t-Transglutaminase IgA <2 U/mL (0-3)
[2024-04-12 15:09] LABS: Anti-Centromere B Ab <0.2 AI (0.0-0.9); Anti-Chromatin <0.2 AI (0.0-0.9); Anti-Jo <0.2 AI (0.0-0.9); Anti-Scleroderma-70 AB <0.2 AI (0.0-0.9); Anti-dsDNA Ab <1 IU/mL (0-9); Beef <0.10 kU/L (Class 0); Chocolate <0.10 kU/L (Class 0); Codfish <0.10 kU/L (Class 0); Corn <0.10 kU/L (Class 0); Egg, Whole <0.10 kU/L (Class 0); Milk (Cow) <0.10 kU/L (Class 0); Mussels <0.10 kU/L (Class 0); Peanut <0.10 kU/L (Class 0); Pork <0.10 kU/L (Class 0); RNP Ab 0.2 AI (0.0-0.9); SJOGREN'S Anti-SS-A test < 0.2 AI (0.0-0.9); SJOGREN'S Anti-SS-B test < 0.2 AI (0.0-0.9); Salmon <0.10 kU/L (Class 0); Shrimp <0.10 kU/L (Class 0); Smith Ab <0.2 AI (0.0-0.9); Soybean <0.10 kU/L (Class 0); Tuna <0.10 kU/L (Class 0); Wheat <0.10 kU/L (Class 0)
== END | disposition home or self-care (01) ==
LOC: LAB 13:47
PROVIDERS: Internal Medicine Endocrinology, Diabetes & Metabolism; PCP Family Medicine
DX: K58.0 Irritable bowel syndrome with diarrhea (principal); K29.70 Gastritis, unspecified, without bleeding; K21.9 Gastro-esophageal reflux disease without esophagitis
CPT/HCPCS: 36415; 80053; 82784; 82785; 83516; 83615; 83970; 84165; 85025; 85652; 86003; 86005; 86036; 86037; 86140; 86225; 86235; 86255; 86334; 86671

== ENCOUNTER 2024-05-06 09:09 | Outpatient (RCR) | payer BC, SELFPAY ==
--- NOTE | 2024-05-06 10:27 | HP.PTEVAL2 ---
Patient's Visit Information Visit Information Visit Information: JORJE FLOWER is a 29 year old F referred to Physical Therapy by Dr. Crow Anderson DO with a diagnosis of . Date of Evaluation: Physical Therapist: Uriah Dao PT, Cert MDT, OCS Anticipated Interventions text: Thank you for the opportunity to evaluate your patient. For Medicare and Medicare HMO plans, please review the plan of care and approve it. It will need to be FAXED BACK to us at [phone] for Medicare purposes. For Medicare only, by signing this I certify the plan of care. Please let me know if there are questions or concerns regarding this plan of care. Physician Signature: Date:
--- NOTE | 2024-05-06 16:20 | HP.PTEVAL ---
Patient's Visit Information Visit Information Visit Information: JORJE FLOWER is a 29 year old F referred to Physical Therapy by Dr. Crow Anderson DO with a diagnosis of PAIN IN LEFT KNEE. Date of Evaluation: 05/06/24 Physical Therapist: Uriah Dao, PT, Cert MDT, OCS Visit Plan Frequency: 2x /Week Duration: 4 Weeks Plan: LATEX ALLEGEY OSTEOPOROSIS PT INTERVENTIONS GRADED STRENGTHENING QUADS/HAMS/HIP ,WB ACTIVITIES , AND FUNCTIONAL STRENGTHENING Subjective Subjective: This 29 y/o female presents to physical therapy with left knee pain with h/o stress fracture . Patient also has osteoporosis . Patient seen DR Frias did x-rays - also seen public transit specialist did x-rays. 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 Plan to get MRI of knee. Patient pain located left medial knee. Aggravating factors steps ,walking and difficulty to kneel and squat. Aggravating factors telyonal. Patient denies paresthesia/tingling -. Patient able to sleep okay at night. Patient condition affects QOL and function. Patient goals to decrease pain. SOCIAL: 3 children VOCATIO: part -time Pain Left Knee: Pain Intensity (Out of 10): 4 Pain Intensity Range: 10 Objective Objective: POSTURE: mild forward posture ,genu recurvatum PALPATION: tender medial knee NEURO: denies paresthesia/tingling GAIT: reciprocal pattern AROM: supine-knee flexion 0-140 degrees MMT: ( peak force) left quads 11.2 ,hamstrings 11.6 ,hip flexion 13.7 ,hip abd 12.3 Special Tests L Knee Rakan - Meniscus: Negative L Knee Valgus - MCL: Negative L Knee Varus - LCL: Negative L Knee Patellar Apprehension - PFS: Positive L Knee Patellar Grind - PFS: Negative Balance/Special Test Scores Lower Extremity Functional Score: 39 Goals Goal 1:: Patient to be I with HEP for knee Goal Time Frame: 4-6 Weeks Goal 2:: Patient to improve peak force quads/hams /hip by 10# to improve gait Goal Time Frame: 4-6 Weeks Goal 3:: Patient to improve LFES score by 5-10# points to improve QOL Goal Time Frame: 4-6 Weeks Goal 4:: Patient to demonstrate 50% improvement with less pain and improved function Goal Time Frame: 4-6 Weeks Rehabilitation Potential Physical Therapy Diagnosis: This patient has left knee pain with h/o stress fx with pain and weakness quads/hams and hip along with osteoporosis thus benefit from skilled PT Rehabilitation Potential: Fair Anticipated Interventions Patient/Client Instruction: Educate patient on: Condition and Plan of Care For the Purpose of:: To decrease pain, To increase ROM, To improve muscle performance and motor function, To increase tolerance to activity/condition/position, To improve ability of physical actions for home/community/work/leisure, To improve gait and locomotor functions, To increase flexibility/ROM and To improve endurance Therapeutic Exercise to Include: Strength training, Flexibilty training and Active ROM Comment: QUADS/HAMS/HIPS For the Purpose of:: To decrease pain, To improve muscle performance and motor function, To improve ability to perform ADL's, To increase tolerance to activity/condition/position, To improve ability of physical actions for home/community/work/leisure, To improve health of tissue, To decrease soft tissue restriction and To increase flexibility/ROM TENS: Yes IF ES: Yes Cryotherapy (ice pack, ice massage): Yes Thermo therapy (hot pack): Yes Ultrasound (thermal/non thermal): Yes For the Purpose of:: To decrease pain, To increase ROM, To improve nutrient delivery to tissue and To increase oxygenation perfusion Text: Thank you for the opportunity to evaluate your patient. For Medicare and Medicare HMO plans, please review the plan of care and approve it. It will need to be FAXED BACK to us at [phone] for Medicare purposes. For Medicare only, by signing this I certify the plan of care. Please let me know if there are questions or concerns regarding this plan of care. Physician Signature: Date:
--- NOTE | 2024-05-19 18:30 | HP.PTDCNRP_ITS ---
Patient Information Patient Information: JORJE FLOWER was seen in my office for initial evaluation on 05/06/24. The following Plan of Care was established for this patient: POC Established Initial Frequency: 2x /Week Initial Duration: 4 Weeks Anticipated Interventions Patient/Client Instruction: Educate patient on: Condition and Plan of Care For the Purpose of:: To decrease pain, To increase ROM, To improve muscle performance and motor function, To increase tolerance to activity/condition/position, To improve ability of physical actions for home/community/work/leisure, To improve gait and locomotor functions, To increase flexibility/ROM and To improve endurance Therapeutic Exercise to Include: Strength training, Flexibilty training and A ctive ROM For the Purpose of:: To decrease pain, To improve muscle performance and motor function, To improve ability to perform ADL's, To increase tolerance to activity/condition/position, To improve ability of physical actions for home/community/work/leisure, To improve health of tissue, To decrease soft tissue restriction and To increase flexibility/ROM TENS: Yes IF ES: Yes Cryotherapy (ice pack, ice massage): Yes Thermo therapy (hot pack): Yes Ultrasound (thermal/non thermal): Yes For the Purpose of:: To decrease pain, To increase ROM, To improve nutrient delivery to tissue and To increase oxygenation perfusion Last Seen Last Seen: This patient was last seen in our office . Pertinent comments regarding their Physical therapy will appear below: Patient is unable to cont with PT due to insurance thus is d/c At this point I will be discontinuing this patient from physical therapy. I would be happy to see this patient again in the future if found appropriate by the physician. Thank you! Uriah Dao, PT, Cert MDT, OCS Balance/Gait/Functional tests Balance/Special Test Scores Lower Extremity Functional Score: 39
== END 2024-05-06 19:00 | disposition home or self-care (01) ==
LOC: PT 09:09
PROVIDERS: PCP Family Medicine; Referring Provider Orthopaedic Surgery; Visit Provider Orthopaedic Surgery
DX: M25.562 Pain in left knee (principal); Z87.312 Personal history of (healed) stress fracture
CPT/HCPCS: 97110; 97162

== ENCOUNTER 2024-05-17 11:26 | Day surgery (SDC) | payer BC, SELFPAY ==
[2024-04-13 15:09] LABS: Giardia Lamblia, Stool EIA Negative (Negative); Pancreatic Elastase, Fecal 590 (>200)
[2024-04-14 00:07] LABS: Calprotectin, Stool 11 ug/g (0-120)
[2024-05-17] VITALS (8 sets, daily range): BP systolic 96–107; BP diastolic 50–74; PULSE 94–100; RESP 16–18; TEMP 36.4–37.1; O2SAT 94–100; BMI 29.9
--- NOTE | 2024-05-17 12:23 | PCM.PRE.AN2 ---
ASA Classification* ASA Classification ASA Classification: 2 Assessment & Plan Anesthesia* Anesthesia Assessment Anesthesia Assessment: Discussed sedation and/or anesthesia options, risks, benefits, and alternatives with patient/parents/legal guardian/POA. Questions invited. The patient/parents/legal guardian/POA seems to understand and agrees to proceed with anesthesia plan. Reviewed the physical assessment, medical history, allergy history and patient home medications list prior to surgery/procedure/anesthetic and documented any changes. Performed airway and anesthesia risk assessments. Anesthesia Type Anesthesia Type: MAC Anesthesia Focused Assessment* Temperature: 97.6 F Pulse Rate: 100 Blood Pressure: 97/50 Respiratory Rate: 16 Pulse Ox: 97 Airway Assessment Mouth opens: >3 cm Mallampati Score: II Focused Labs Anesthesia Preop lab: CBC WBC 4.7 K/mm3 (4.4-11.0) 04/05/24 13:54 RBC 4.39 M/mm3 (4.2-5.4) 04/05/24 13:54 Hgb 12.9 g/dL (12.0-15.0) 04/05/24 13:54 Hct 38.9 % (37-47) 04/05/24 13:54 Plt Count 323 K/mm3 (150-450) 04/05/24 13:54 CHEMISTRY Potassium 3.9 mmol/L (3.5-5.1) 04/05/24 13:54 Sodium 137 mmol/L (136-145) 04/05/24 13:54 Phosphorus 3.0 mg/dL (2.5-4.9) 03/18/24 09:23 BUN 12 mg/dL (7-18) 04/05/24 13:54 Creatinine 0.84 mg/dL (0.55-1.02) 04/05/24 13:54 Glucose 93 mg/dL (74-106) 04/05/24 13:54 TSH 1.460 uIU/mL (0.358-3.740) 03/18/24 09:23 COAG HCG, Quant < 1 mIU/mL (1-3) 07/16/20 13:39 Pre-Assessment Diagnosis/Proposed Procedure Planned Operative Procedure(s): EGD Anesthesia History 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 When Was Last Pacemaker Check QUESTION #4 FULL TEXT: You/Your Family Experience fever (hyperthermia) with Anesthesia Last Oral Intake Last Oral intake: Last Oral Intake NPO since Meds taken in AM with sips of water? Meds patient instructed to take am of surgery PONV PONV - recording clerk: PONV - recording clerk Female Yes 05/13/24 10:54 HX of Motion Sickness Yes 05/13/24 10:54 HX of N/V After Surgery No 05/13/24 10:54 Non-Smoker Yes 05/13/24 10:54 Duration of Surgery greater No 05/13/24 10:54 than 60 minutes Number of Risk Factors 3 05/13/24 10:54 PONV Score Moderate Risk 05/13/24 10:54 Height & Weight Height & Weight: Anesthesia: Height & Weight Height 5 ft 4 in 05/17/24 12:01 Weight: 79 kg 05/17/24 12:01 Body Mass Index (BMI) 29.9 05/17/24 12:01 Respiratory Assessment Respiratory Assessment - recording clerk: Respiratory Tract Infection Hx - recording clerk Hx Respiratory Tract Infection Yes: COLD, ON ANTIBIOTIC AND 05/13/24 10:54 PREDNISONE STOP Sleep Apnea STOP Sleep Apnea - recording clerk: STOP Sleep Apnea - recording clerk Hx Hypertension No 05/13/24 10:54 Hx Sleep Apnea No 05/13/24 10:54 CPAP BIPAP Do you snore loudly (louder No 05/13/24 10:54 than talking or can be heard Do you often feel tired/ No 05/13/24 10:54 fatigued/ sleepy during daytime? Has anyone observed you stop No 05/13/24 10:54 breathing during sleep? STOP Results Negative 05/13/24 10:54 QUESTION #5 FULL TEXT : Do you snore loudly (louder than talking or can be heard through closed doors)? 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 Specify any problems Hx of Preganancy in last 3 No 05/13/24 10:54 Months Nurse Filling Out Transfusion VCHRISTIN 05/13/24 10:54 & Questions: Date: 05/13/24 05/13/24 10:54 Time: 10:56 05/13/24 10:54 Patient unable to answer at this time (ie. confused, unrespo /Reproduction History /Reproductive History - recording clerk: /Reproductive Hx- recording clerk Hx Now No 05/13/24 10:54 Gestational Age (in weeks): EDC: Hx Hx Para Hx Section SAB No 05/13/24 10:54 PFSH Medical History (Updated 05/13/24 @ 10:54 by Dariana Kumar) Wears glasses Depression History of steroid therapy Psoriatic arthritis Back pain Migraine headache Seizures History of IBS Gastric reflux Non-smoker Asthma Shortness of breath on exertion IBS (irritable bowel syndrome) Anxiety Chronic fatigue GERD (gastroesophageal reflux disease) Osteoporosis Anemia Vitamin D deficiency Home Medications ?Medication ?Instructions ?Recorded ?Last Taken ?Type buspirone 5 mg tablet 10 mg PO BID anxiety 03/24/20 06/02/21 00:00 History albuterol sulfate 2.5 mg/3 mL 2.5 mg inhalation Q6H PRN PRN 04/28/20 Unknown History (0.083 %) solution for nebulization SHORT OF BREATH albuterol sulfate 90 mcg/actuation 2 puff inhalation Q6H PRN PRN 04/28/20 Unknown History aerosol inhaler SHORT OF BREATH cholecalciferol (vitamin D3) 1,250 1,250 mcg PO QWEEK 02/23/23 Unknown History mcg (50,000 unit) capsule sertraline 100 mg tablet (Zoloft) 50 mg PO DAILY 03/17/24 Unknown History cetirizine 10 mg tablet (Allergy 10 mg PO QDAY PRN allergy symptoms 04/05/24 Unknown History Relief (cetirizine)) omeprazole 40 mg capsule,delayed 40 mg PO BID #60 caps 04/05/24 Unknown Rx release sucralfate 1 gram tablet 1 g PO QAC #90 tabs 04/05/24 Unknown Rx azithromycin 250 mg tablet 250 mg PO DAILY 05/13/24 Unknown History cyclobenzaprine 10 mg tablet 10 mg PO DAILY 05/13/24 Unknown History fluconazole 150 mg tablet 150 mg PO .ONE TIME 05/13/24 Unknown History prednisone 20 mg tablet 20 mg PO DAILY 05/13/24 Unknown History pregabalin 50 mg capsule (Lyrica) 50 mg PO BID 05/13/24 Unknown History Allergy/AdvReac Type Severity Reaction Status Date / Time lamotrigine (From Lamictal) Allergy Intermediate Other Verified 05/17/24 11:59 levetiracetam (From Keppra) Allergy Intermediate Other Verified 05/17/24 11:59 parnell pepper (green pepper) Allergy Anaphylaxis Verified 05/17/24 11:59 Penicillins Allergy Hives Verified 05/17/24 11:59 adhesive AdvReac Rash Verified 05/17/24 11:59 fluoxetine (From Sarafem) AdvReac COUGH Verified 05/17/24 11:59 latex AdvReac Rash Verified 05/17/24 11:59 metoclopramide (From Reglan) AdvReac Other Verified 05/17/24 11:59 paroxetine (From Paxil) AdvReac MIGRAINES Verified 05/17/24 11:59 Surgical History (Updated 05/13/24 @ 10:57 by Dariana Kumar) Hx of tubal ligation Hx of section History of thumb surgery History of wisdom tooth extraction History of eye surgery Social History Smoking Status: Never smoker alcohol intake: current alcohol intake frequency: holidays/special occasions only substance use type: does not use what type of physical activity do you participate in: none Review of Systems (Anesthesia) ROS Narrative System reviewed and no additional complaints, except as documented.
--- NOTE | 2024-05-17 12:25 | HP.PCM_ITS ---
HPI - General General Date of Admission: 05/17/24 Date of Service: 05/17/24 Chief Complaint: Abdominal pain and diarrhea HPI Narrative JORJE FLOWER, is a 29 F who presents to the office today for establishment with [facility] for complaints of epigastric abdominal pain 15 minutes postprandial, daily nausea, occasional vomiting, multiple episodes of diarrhea daily. She denies difficulty chewing and swallowing, abdominal bloating, excessive gas, constipation, and melena. She reports bleeding per rectum visible when wiping self, no blood wrapped around or in stool. She states that she takes Imodium OTC for her diarrhea and reduces her episodes to 2-3 x/daily. She reports having been on omeprazole while , but stopped. Also reports chronic nausea/vomiting while and blood loss anemia post delivery in 2021. She reports history of osteoporosis being investigated by of endocrinology. She states that red sauces seem to aggravate her epigastric pain and heartburn. She denies knowing of any other food sensitivities or allergies. She reports strong family history of Crohn's disease and she herself has psoriasis, psoriatic arthritis, fibromyalgia, and asthma. [facility] Medical History Wears glasses Depression History of steroid therapy Psoriatic arthritis Back pain Migraine headache Seizures History of IBS Gastric reflux Non-smoker Asthma Shortness of breath on exertion IBS (irritable bowel syndrome) Anxiety Chronic fatigue GERD (gastroesophageal reflux disease) Osteoporosis Anemia Vitamin D deficiency Home Medications ?Medication ?Instructions ?Recorded ?Last Taken ?Type buspirone 5 mg tablet 10 mg PO BID anxiety 03/24/20 06/02/21 00:00 History albuterol sulfate 2.5 mg/3 mL 2.5 mg inhalation Q6H PRN PRN 04/28/20 Unknown History (0.083 %) solution for nebulization SHORT OF BREATH albuterol sulfate 90 mcg/actuation 2 puff inhalation Q6H PRN PRN 04/28/20 Unknown History aerosol inhaler SHORT OF BREATH cholecalciferol (vitamin D3) 1,250 1,250 mcg PO QWEEK 02/23/23 Unknown History mcg (50,000 unit) capsule sertraline 100 mg tablet (Zoloft) 50 mg PO DAILY 03/17/24 Unknown History cetirizine 10 mg tablet (Allergy 10 mg PO QDAY PRN allergy symptoms 04/05/24 Unknown History Relief (cetirizine)) omeprazole 40 mg capsule,delayed 40 mg PO BID #60 caps 04/05/24 Unknown Rx release sucralfate 1 gram tablet 1 g PO QAC #90 tabs 04/05/24 Unknown Rx azithromycin 250 mg tablet 250 mg PO DAILY 05/13/24 Unknown History cyclobenzaprine 10 mg tablet 10 mg PO DAILY 05/13/24 Unknown History fluconazole 150 mg tablet 150 mg PO .ONE TIME 05/13/24 Unknown History prednisone 20 mg tablet 20 mg PO DAILY 05/13/24 Unknown History pregabalin 50 mg capsule (Lyrica) 50 mg PO BID 05/13/24 Unknown History Allergy/AdvReac Type Severity Reaction Status Date / Time lamotrigine (From Lamictal) Allergy Intermediate Other Verified 05/17/24 11:59 levetiracetam (From Keppra) Allergy Intermediate Other Verified 05/17/24 11:59 parnell pepper (green pepper) Allergy Anaphylaxis Verified 05/17/24 11:59 Penicillins Allergy Hives Verified 05/17/24 11:59 adhesive AdvReac Rash Verified 05/17/24 11:59 fluoxetine (From Sarafem) AdvReac COUGH Verified 05/17/24 11:59 latex AdvReac Rash Verified 05/17/24 11:59 metoclopramide (From Reglan) AdvReac Other Verified 05/17/24 11:59 paroxetine (From Paxil) AdvReac MIGRAINES Verified 05/17/24 11:59 Surgical History (Updated 05/13/24 @ 10:57 by Dariana Kumar) Hx of tubal ligation Hx of section History of thumb surgery History of wisdom tooth extraction History of eye surgery Social History Smoking Status: Never smoker alcohol intake: current alcohol intake frequency: holidays/special occasions only substance use type: does not use what type of physical activity do you participate in: none ROS Constitutional Constitutional: Denies fatigue, fever(s), poor appetite, weight gain or weight loss Gastrointestinal Gastrointestinal: Denies belching, bloating, change in bowel habits, change in stool character, chewing difficulty, coffee ground emesis, constipation, cramping, diarrhea, dyspepsia, dysphagia, early satiety, excessive flatus, fecal incontinence, heartburn, hematemesis, hematochezia, hemorrhoids, loose stools, melena, nausea, odynophagia, rectal bleeding, tenesmus, vomiting or weight changes Vital Signs Vital Signs Vital Signs: 05/17/24 12:01 05/17/24 12:01 05/17/24 12:23 Temperature 97.6 F L 97.6 F L Temperature Source Temporal Pulse Rate 100 100 Respiratory Rate 16 16 Respiratory Pattern Normal Blood Pressure 97/50 L 97/50 L Blood Pressure Mean 65 Blood Pressure Source Monitor Blood Pressure Position Semi-Fowlers Blood Pressure Location Right Arm Pulse Ox 97 97 Oxygen Delivery Method Room Air Weight Weight: 174 lb 2.643 oz Body Mass Index (BMI) 29.9 Physical Exam Const alert, oriented x3, no apparent distress and healthy appearing General Appearance: cooperative GI normal to inspection, nondistended, normoactive bowel sounds, soft to palpation, non-tender and non-distended Percussion: normal to percussion Rectal Exam: deferred Assessment & Plan Assessment/Plan (1) Gastritis: QUALIFIERS: Gastritis type: unspecified gastritis Chronicity: unspecified Gastritis bleeding: presence of bleeding unspecified Qualified Code(s): K29.70 - Gastritis, unspecified, without bleeding (2) Irritable bowel syndrome with diarrhea: PLAN: Plan JORJE FLOWER, is a 29 F who presents to the office today for establishment with [facility] for complaints of epigastric abdominal pain 15 minutes postprandial, daily nausea, occasional vomiting, multiple episodes of diarrhea. Differential diagnoses include: PUD, gastritis, GERD, IBS-D, IBD, EPI. Discussed plans with her and she is agreeable. * blood for food allergy, inflammatory, IBS/D markers * stool for inflammatory, enzyme, enteric markers * GET d/t N/V * EGD d/t epigastric pain postprandial * omeprazole 40mg PO BID [id number] * sucralfate 1gm PO QAC [id number] * call with results * office follow-up 3months
--- NOTE | 2024-05-17 12:30 | IMM_PTH ---
PATIENT: JORJE FLOWER LOC: EN U#:[id number] AGE/SX: 29/F ROOM: RE05/17/[address]: Dr. Daquan Vasquez DO : 1995 BED: DIS: 05/17/2024 SPEC #: [id number] RECD: 05/18/24 11:24 STATUS: JANEL REQ #: [id number] ROSITA: 05/17/24 12:[address]: Daquan Vasquez DEPT: IMMUNOHISTOCHEMISTRY RECD BY: Campbell Garcia ENTERED: 05/18/24 11:25 SP TYPE: IMMUNO OTHR DR: Dr. Tamar Haji DO Tissues: B - Gastric mucous membrane Procedures: H Pylori (initial) PHYSICIAN & INSTITUTION [place] [id number] SPECIMEN INFORMATION: Tissue Source: B- Gastric body biopsy Clinical Info: Gastritis, irritable bowel syndrome with diarrhea Specimen Number: [id number] CPT code: 31132 METHODOLOGY: Deparaffinized sections of prefer/formalin-fixed tissue or PAP/DQ stained slides are incubated with monoclonal/polyclonal antibodies/oligonucleotide probes. Localization is made via biotin free immunoperoxidase method. Appropriate controls are performed and reacted as expected. Results on target cell population are indicated in the following table: RESULTS: ANTIBODY / CLONE RESULT Block B H Pylori (polyclonal) negative These tests were developed and their performance characteristics determined by [facility]. They may not have been cleared or approved by the U.S. Food and Drug Administration. The FDA has determined that such clearance or approval is not necessary. The above immunohistochemical/dualISH markers are ordered and reviewed by the Pathologist. INTERPRETATION: B. Gastric body, biopsy: Negative for Helicobacter pylori organisms. AM. 05/19/2024
--- NOTE | 2024-05-17 12:30 | EGD_PTH ---
PATIENT: JORJE FLOWER LOC: EN U#:[id number] AGE/SX: 29/F ROOM: RE05/17/[address]: Dr. Daquan Vasquez DO : 1995 BED: DIS: 05/17/2024 SPEC #: [id number] RECD: 05/18/24 07:27 STATUS: JANEL CELIO #: [id number] ROSITA: 05/17/24 12:[address]: Daquan Vasquez DEPT: SURGICAL PATHOLOGY RECD BY: Laura Lee ENTERED: 05/18/24 11:27 SP TYPE: EGD BIOPSY AMALIA DR: Dr. Tamar Haji DO Tissues: A - Duodenum, NOS B - Gastric mucous membrane Procedures: Surgery Specimen Level IV HEADER OPERATION: EGD with biospy PRE-OP DIAGNOSIS: Gastritis, irritable bowel syndrome with diarrhea TISSUE SUBMITTED: A- Duodenum biopsy x2, B- Gastric body biopsy x2 MICROSCOPIC DIAGNOSIS A. Duodenum, biopsy: Mild non-specific chronic inflammation. Mild Dc's gland hyperplasia. B. Gastric body, biopsy: Chronic gastritis. See comment. AM. 05/19/2024 COMMENT B. The results of immunohistochemistry for Helicobacter pylori will be reported separately ([id number]). MICROSCOPIC DESCRIPTION Slides are reviewed. GROSS DESCRIPTION A. Received in fixative is one container labeled with the patient's name and designated Duodenum biopsy x2. The specimen consists of multiple irregular fragments of light espinal soft tissue that in aggregate measure 0.8 x 0.3 x 0.1 cm. The specimen is totally submitted in one cassette. B. Received in fixative is one container labeled with the patient's name and designated Gastric body biopsy x2. The specimen consists of multiple irregular fragments of light espinal soft tissue that in aggregate measure 1.0 x 0.4 x 0.1 cm. The specimen is totally submitted in one cassette. 05/18/2024 TC:3 CPT:15115i7
--- NOTE | 2024-05-17 13:04 | PCM.POST.ANE ---
Anesthesia: Postop Eval I Current Vital Signs Temperature: 98.2 F Pulse Rate: 94 Blood Pressure: 100/66 Respiratory Rate: 16 Pulse Ox: 97 Oxygen Delivery Method: Room Air Assessment Airway patent: No Spontaneous unlabored respirations: No Mental status: Asleep nausea: No Vomiting: No Anesthesia Complication: No Fluid Hydration Crystalloid volume administer (ml): 30 Total IV fluid infused: 30 Progress Note Anesthesia document: Postop Eval 1 completed: Yes
--- NOTE | 2024-05-17 13:06 | OP.CCLET_ITS ---
05/17/2024 Tamar Haji [address] [facility] [place] [address] Re : Upper GI endoscopy procedure for Maria Isabel Mckay Dear Dr. Haji This procedure was performed on Friday, May 17, 2024. My impressions and recommendations are as follows: Impressions : - Normal esophagus. - Erythematous mucosa in the gastric body. Biopsied. - Chronic duodenitis. Biopsied. Recommendations : - Discharge patient to home. - Resume previous diet. - Continue present medications. - Await pathology results. - Gallbladder ultrasound and HIDA scan with CCK - Gastric emptying study to see how well her stomach digest food My findings are described in the full procedure note, which is enclosed. If I can be of further assistance, please feel free to contact me at . Sincerely, Daquan Vasquez, 05/17/2024 1:05:45 PM This report has been signed electronically.
--- NOTE | 2024-05-17 13:06 | OP.EGD_ITS ---
Patient Name: Maria Isabel Mckay Procedure Date: 05/17/2024 12:42 PM Date of : 1995 Age: 29 Procedure: Upper GI endoscopy Indications: Epigastric abdominal pain, Functional Dyspepsia, Indigestion Providers: Daquan Vasquez DO Referring MD: Tamar Haji Medicines: Monitored Anesthesia Care Patient Profile: This is a 29 year old female. Refer to note in patient chart for documentation of history and physical. Patient has symptoms of chronic epigastric abdominal pain. Complications: No immediate complications. Procedure: Pre-Anesthesia Assessment: - Prior to the procedure, a History and Physical was performed, and patient medications and allergies were reviewed. The patient is competent. The risks and benefits of the procedure and the sedation options and risks were discussed with the patient. All questions were answered and informed consent was obtained. Patient identification and proposed procedure were verified by the physician in the pre-procedure area. Mental Status Examination: alert and oriented. Airway Examination: normal oropharyngeal airway and neck mobility. Respiratory Examination: clear to auscultation. CV Examination: normal. Prophylactic Antibiotics: The patient does not require prophylactic antibiotics. Prior Anticoagulants: The patient has taken no anticoagulant or antiplatelet agents except for NSAID medication. ASA Grade Assessment: II - A patient with mild systemic disease. After reviewing the risks and benefits, the patient was deemed in satisfactory condition to undergo the procedure. The anesthesia plan was to use monitored anesthesia care (MAC). Immediately prior to administration of medications, the patient was re-assessed for adequacy to receive sedatives. The heart rate, respiratory rate, oxygen saturations, blood pressure, adequacy of pulmonary ventilation, and response to care were monitored throughout the procedure. The physical status of the patient was re-assessed after the procedure. After obtaining informed consent, the endoscope was passed under direct vision. Throughout the procedure, the patient's blood pressure, pulse, and oxygen saturations were monitored continuously. The gastroscope was introduced through the mouth, and advanced to the second part of duodenum. The upper GI endoscopy was accomplished without difficulty. The patient tolerated the procedure well. Scope In: 12:52:17 PM Scope Out: 12:57:42 PM Total Procedure Duration Time 0 hours 5 minutes 25 seconds Findings: The examined esophagus was normal. Patchy mildly erythematous mucosa without bleeding was found in the gastric body. Biopsies were taken with a cold forceps for histology. Verification of patient identification for the specimen was done. Estimated blood loss was minimal. Biopsies were taken with a cold forceps for Helicobacter pylori testing. Verification of patient identification for the specimen was done. Estimated blood loss was minimal. Patchy mild inflammation characterized by erythema and granularity was found in the duodenal bulb. Biopsies were taken with a cold forceps for histology. Verification of patient identification for the specimen was done. Estimated blood loss was minimal. Impression: - Normal esophagus. - Erythematous mucosa in the gastric body. Biopsied. - Chronic duodenitis. Biopsied. Recommendation: - Discharge patient to home. - Resume previous diet. - Continue present medications. - Await pathology results. - Gallbladder ultrasound and HIDA scan with CCK - Gastric emptying study to see how well her stomach digest food Procedure Code(s): --- Professional --- 01978, Esophagogastroduodenoscopy, flexible, transoral; with biopsy, single or multiple CPT copyright 2021 [employer]. All rights reserved. The codes documented in this report are preliminary and upon hims coder review may be revised to meet current compliance requirements. Daquan Vasquez DO 05/17/2024 1:05:45 PM This report has been signed electronically. Number of Addenda: 0 Note Initiated On: 05/17/2024 12:42 PM
--- NOTE | 2024-05-17 13:10 | PCM.POSTANE2 ---
Anesthesia Postop Eval I Sum Postop Eval Completion status Anesthesia document: Postop Eval 1 completed: Yes Anesthesia Postop Eval I Summary Anesthesia Postop Eval I Summary: Anesthesia Postop Eval I: Assessment Summary Airway patent No 05/17/24 13:05 [email or web address] Spontaneous unlabored No 05/17/24 13:05 [email or web address] respirations Mental status Asleep 05/17/24 13:05 [email or web address] nausea No 05/17/24 13:05 [email or web address] Vomiting No 05/17/24 13:05 [email or web address] Anesthesia Postop Eval I: Fluid Summary Crystalloid volume administer 30 05/17/24 13:05 [email or web address] (ml) Colloids volume administered ( ml) Blood Product volume administered (ml) Total IV fluid infused 30 05/17/24 13:05 [email or web address] Anesthesia Postop Eval I: Summary Notes Anesthesia Complication No 05/17/24 13:05 [email or web address] Anesthesia Complication Comment: Post-operative progress note Anesthesia: Postop Eval II Evaluation Mental status: Awake Pain Level: 0 nausea: No Vomiting: No
== END 2024-05-17 13:55 | disposition home or self-care (01) ==
LOC: EN 11:29 → AC 11:30
PROVIDERS: PCP Family Medicine; Referring Provider Family Medicine; Visit Provider Internal Medicine Gastroenterology
PROC: 0DJ08ZZ Inspection of Upper Intestinal Tract, Via Natural or Artificial Opening Endoscopic (ICD-10-PCS; CPT 43235; principal; 2024-05-17 12:25)
DX: K29.70 Gastritis, unspecified, without bleeding (principal); R10.13 Epigastric pain; K58.0 Irritable bowel syndrome with diarrhea; K29.80 Duodenitis without bleeding; F41.9 Anxiety disorder, unspecified; Z79.899 Other long term (current) drug therapy; F32.A Depression, unspecified; K21.9 Gastro-esophageal reflux disease without esophagitis; Z98.51 Tubal ligation status; K31.89 Other diseases of stomach and duodenum
CPT/HCPCS: 43239; 82653; 83630; 83993; 87329; 87506; 88305; 88342; J2405

== ENCOUNTER → 2024-05-30 | Outpatient (CLI) | payer BC, SELFPAY ==
--- NOTE | 2024-05-30 09:00 | MRI_ITS ---
EXAM: MR LEFT LOWER EXTREMITY WITHOUT INTRAVENOUS CONTRAST, HIP CLINICAL INDICATION: pain, hx of stress fracture, KNEE PAIN TECHNIQUE: Multiplanar and multisequence MR images of the left hip without intravenous contrast. COMPARISON: 04/13/24 FINDINGS: TENDONS: FLEXORS: Unremarkable. Intact. EXTENSORS/HAMSTRING: Unremarkable. Intact. ABDUCTORS: Unremarkable. Intact. ADDUCTORS: Unremarkable. Intact. ROTATORS: Unremarkable. Intact. MUSCLES: Small focus of medial gastrocnemius muscle edema, at the deep aspect suggesting a low-grade strain injury. FLUID: At least moderate with suprapatellar joint effusion with moderate Walsh''s cyst; no evidence of cyst leakage or rupture. No trochanteric bursitis. LABRUM: Unremarkable. No evidence of a tear on this non-arthrogram exam. CARTILAGE: Unremarkable. Articular cartilage intact. BONES/JOINTS: Nonspecific heterogeneous marrow signal alterations involving the the epiphysis and metaphysis of the distal femur without definite fracture line. No avascular necrosis of the femoral head. No sacral insufficiency fracture. No other marrow signal alterations. MRI/Lower Ext Joint Only (Routine) IMPRESSION: 1. Small focus of the medial suggesting ileus muscle edema, at the deep aspect suggesting a low-grade strain injury. 2. At least moderate suprapatellar joint effusion with moderate Walsh''s cyst without evidence of cyst leakage or rupture. Findings. Phlebolith Electronically Signed: Cayden Cornelius MD at 23:15 EST ,
--- NOTE | 2024-05-30 18:46 | MRI_ITS ---
STUDY: MRI LUMBAR SPINE WITHOUT CONTRAST REASON FOR EXAM: Female, 29 years old. lumbar radiculopathy, BACK PAIN TECHNIQUE: Standardized fat and water weighted pulse sequences were obtained in the sagittal and axial planes. COMPARISON: X-ray 04/25/2024 FINDINGS: T12-L1: Normal endplates. Normal disc height, hydration and morphology. Normal bilateral facet joints. Normal central canal and bilateral lateral recesses. Normal bilateral intervertebral neural foramina. Normal lumbar lordosis. There is no substantial scoliosis. Normal conus medullaris that terminates at the L1. L1-2: Normal endplates. Normal disc height, hydration and morphology. Normal bilateral facet joints. Normal central canal and bilateral lateral recesses. Normal bilateral intervertebral neural foramina. L2-3: Normal endplates. Normal disc height, hydration and morphology. Normal bilateral facet joints. Normal central canal and bilateral lateral recesses. Normal bilateral intervertebral neural foramina. L3-4: Normal endplates. Normal disc height, hydration and morphology. Normal bilateral facet joints. Normal central canal and bilateral lateral recesses. Normal bilateral intervertebral neural foramina. L4-5: Normal endplates. Normal disc height, hydration and morphology. Normal bilateral facet joints. Normal central canal and bilateral lateral recesses. Normal bilateral intervertebral neural foramina. L5-S1: Normal endplates. Normal disc height, hydration and morphology. Normal bilateral facet joints. Normal central canal and bilateral lateral recesses. Normal bilateral intervertebral neural foramina. Normal visualized sacral ala. Normal visualized paraspinous soft tissue structures. MRI/Spine Lumbar (Routine) IMPRESSION: Normal unenhanced MR examination of the lumbar spine. Electronically Signed: Joshua Saeed MD at 10:32 EST ,
== END | disposition home or self-care (01) ==
PROVIDERS: PCP Family Medicine; Referring Provider Student in an Organized Health Care Education/Training Program; Visit Provider Student in an Organized Health Care Education/Training Program
DX: M54.16 Radiculopathy, lumbar region (principal); M25.562 Pain in left knee
CPT/HCPCS: 72148; 73721

== ENCOUNTER → 2024-07-09 | Outpatient (CLI) | payer BC, SELFPAY ==
--- NOTE | 2024-07-09 11:04 | US_ITS ---
PROCEDURE: GALLBLADDER REASON FOR EXAM: Pain COMPARISON: None FINDINGS: Liver: Increased echogenicity. No focal mass. Gallbladder: No stones, sludge, wall thickening or tenderness. Common bile duct: Normal measuring . Pancreas: Visualized portions are sonographically unremarkable. Visualized portions of the right kidney are unremarkable. No right upper quadrant ascites. US/Gallbladder IMPRESSION: Hepatic steatosis. Reading Location: [facility]
== END | disposition home or self-care (01) ==
LOC: US 11:02
PROVIDERS: PCP Family Medicine
DX: K29.80 Duodenitis without bleeding (principal)
CPT/HCPCS: 76705

== ENCOUNTER → 2024-07-18 | Outpatient (CLI) | payer BC, SELFPAY ==
--- NOTE | 2024-07-18 13:33 | NM_ITS ---
EXAM: GASTRIC EMPTYING STUDY CLINICAL HISTORY: Chronic nausea. COMPARISON: None. TECHNIQUE: A mixture of 1.1 mCi of technetium sulfur colloid and oatmeal was ingested by the patient. The patient only ingested 50% of the meal. FINDINGS: 50% of the radiopharmaceutical exited the stomach at 28 minutes. This is a normal examination. NM/Gastric Emptying Study IMPRESSION: Normal examination. Reading Location: [id number]
== END | disposition home or self-care (01) ==
PROVIDERS: PCP Family Medicine
DX: K58.0 Irritable bowel syndrome with diarrhea (principal); K29.70 Gastritis, unspecified, without bleeding; K21.9 Gastro-esophageal reflux disease without esophagitis
CPT/HCPCS: 78264; A9541

== ENCOUNTER → 2024-08-03 | Outpatient (CLI) | payer BC, SELFPAY ==
--- NOTE | 2024-08-03 09:54 | NM_ITS ---
PROCEDURE: HEPATOBILLIARY IMG W/PHARM INT REASON FOR EXAM: Duodenitis. TECHNIQUE: Intravenous Choletec with planar imaging of the abdomen. 1.6 mcg Kinevac intravenously approximately 60 minutes after the radiopharmaceutical with additional anterior imaging and a region of interest drawn around the gallbladder to calculate a time-activity curve. RADIOPHARMACEUTICAL: 5.5 mCi of mebrofenin COMPARISON: None. FINDINGS: There is good uptake of the radiopharmaceutical by the liver. Normal gallbladder visualization with the gallbladder identified by 30 minutes. Gallbladder Ejection Fraction: 83 % (Normal is >35%) NM/Hepatobilliary Img w/Pharm Int IMPRESSION: NORMAL HIDA SCAN AND GALLBLADDER EJECTION FRACTION. Reading Location: [id number]
== END | disposition home or self-care (01) ==
LOC: NM 09:51
PROVIDERS: PCP Family Medicine
DX: K29.80 Duodenitis without bleeding (principal)
CPT/HCPCS: 78227; A9537; J2805

== ENCOUNTER → 2024-09-06 | Outpatient (CLI) | payer BC, SELFPAY ==
--- NOTE | 2024-09-06 14:00 | RAD_ITS ---
PROCEDURE: Thoracic spine radiographs, three views 09/06/2024 REASON FOR EXAM: ASSESS FOR FRACTURE TECHNIQUE: Three views of the thoracic spine were obtained. COMPARISON: None available FINDINGS: Three views of the thoracic spine were obtained. There is slight leftward curvature of the upper thoracic spine on the AP view. Included lungs are clear. There is age-indeterminate minimal superior endplate compression deformity of a few mid thoracic vertebral bodies, a proximally T7 and T8. Mild degenerative disc disease midthoracic spine. No focal subluxation of the thoracic spine. RAD/Thoracic Spine 3 Views IMPRESSION: Age-indeterminate minimal superior endplate compression deformities of a few mi d thoracic vertebral bodies, a proximally T7/T8. No focal subluxation. Chronicity of these findings could be better evaluated w ith MRI. Mild degenerative disc disease midthoracic spine. [facility]
== END | disposition home or self-care (01) ==
LOC: MTRAD 13:59
PROVIDERS: PCP Family Medicine; Referring Provider Nurse Practitioner Family; Visit Provider Nurse Practitioner Family
DX: M54.6 Pain in thoracic spine (principal); M81.0 Age-related osteoporosis without current pathological fracture
CPT/HCPCS: 72072

== ENCOUNTER → 2024-10-08 | Outpatient (CLI) | payer BC, SELFPAY ==
--- NOTE | 2024-10-08 08:35 | MRI_ITS ---
PROCEDURE: SPINE THORACIC (ROUTINE) 10/08/2024 REASON FOR EXAM: PAIN TECHNIQUE: Noncontrast thoracic spine MRI. Multiplanar and multisequence images were obtained. COMPARISON: Thoracic spine radiograph 09/06/2024 FINDINGS: Vertebrae: Mild acute-subacute compression deformity T8 vertebral body with a proximally 10% loss of disc height. There is increased T2/stir signal within the superior endplate of the vertebral body. No retropulsion. Remainder of the vertebral body heights are maintained. No suspicious marrow signal abnormality otherwise. No evidence of ligamentous injury. Alignment: Thoracic kyphosis is maintained. Spinal Cord: Thoracic spinal cord is of normal size and signal intensities. No thoracic spinal cord lesions are identified. Disc spaces: Unremarkable. Paraspinal Tissues: Paraspinous soft tissues are unremarkable. MRI/Spine Thoracic (Routine) IMPRESSION: Acute-subacute mild compression deformity T8 vertebral body with a proximally 1 0% loss of disc height. No retropulsion. Reading Location: [facility]
== END | disposition home or self-care (01) ==
LOC: MRI 08:28
PROVIDERS: PCP Family Medicine; Referring Provider Student in an Organized Health Care Education/Training Program; Visit Provider Student in an Organized Health Care Education/Training Program
DX: M47.14 Other spondylosis with myelopathy, thoracic region (principal); S22.000A Wedge compression fracture of unspecified thoracic vertebra, initial encounter for closed fracture
CPT/HCPCS: 72146

== ENCOUNTER → 2024-10-12 | Outpatient (CLI) | payer BC, SELFPAY ==
--- NOTE | 2024-10-12 12:24 | BD_ITS ---
EXAM: DEXA BONE DENSITY STUDY 10/12/2024 REASON FOR EXAM: COMPARE 2022 F,29 y/o steroid use. TECHNIQUE: DXA scan of sites with data reported below. REFERENCE LINKS: [facility] Position[facility] COMPARISON: Prior study dated October 09, 2022. FINDINGS: BMD and Z-SCORES Lumbar spine: 0.752 g/cm2, Z-Score -2.7 L1 through L4 Change from prior: Worsening of 1.1% Left femoral neck: 0.603 g/cm2, Z-Score -2.2 Femoral neck comparison data not recommended for monitoring change. Left total hip: 0.611 g/cm2, Z-Score -2.7 Change from prior: Improvement by 1.5% Right femoral neck: 0.610 g/cm2, Z-Score -2.2 Femoral neck comparison data not recommended for monitoring change. Right total hip: 0.668 g/cm2, Z-Score -2.2 Change from prior: Improvement by 6.5% BD/Dexa Bone Density Study IMPRESSION: Osteoporosis. Recommend follow-up, if clinically warranted. Reading Location: [id number]
== END | disposition home or self-care (01) ==
LOC: OPBD 12:19
PROVIDERS: PCP Family Medicine; Referring Provider Internal Medicine Endocrinology, Diabetes & Metabolism; Visit Provider Internal Medicine Endocrinology, Diabetes & Metabolism
DX: M81.0 Age-related osteoporosis without current pathological fracture (principal)
CPT/HCPCS: 77080

== ENCOUNTER 2024-10-19 10:00 | Outpatient (RCR) | payer BC, SELFPAY ==
--- NOTE | 2024-09-16 13:51 | HP.PTEVAL ---
Patient's Visit Information Visit Information Visit Information: JORJE FLOWER is a 29 year old F referred to Physical Therapy by JAGUAR Walker with a diagnosis of Thoracic compression DX T7 and T8. Date of Evaluation: 09/16/24 Physical Therapist: RAIZA Scott Visit Plan Frequency: 2x /Week Duration: 4 Weeks Plan: ### Latex FREE bands only### 2X/ week for 4 weeks for postural exercises, core strength with HEP HEP: latex free orange band mid rows Subjective Subjective: She has 2 compression fx in her back. She is not sure how she did it. She has osteoporosis. They think that it is pretty bad for her age so they are investigating other possibilities. T7 and T8 are the areas of fracture. They are going to do an MRI because they are not sure if old or new Fx. She noticed pain around September 03. She is doing really good right now but sometimes if she moves wrong it will start up with pain. She was told no bending and twisting. She has 3 kids under the age of 5 so that is hard. She is sleeping ok with the Celebrex. Pain mid back pain: Pain Intensity (Out of 10): 3 Objective Objective: R handed: C-spine: Rot B 75%, flexion 100%, Ext 50%, SB B 75% R shoulder flexion 8.3 and L 6.7 R shoulder ER 9.2 and L 8.8 UE AROM: Flexion slightly decreased end range. pain with end rage IR/ER AROM Posture: rolled shoulders and slightly FW head Gait: normal gait pattern. slightly flexed trunk. Balance/Special Test Scores Oswestry Low Back Score: 19 Goals Goal 1:: I HEP Goal Time Frame: 4-6 Weeks Goal 2:: Be able to lift even small things without pain Goal Time Frame: 4-6 Weeks Goal 3:: Be able to sit with upright posture Goal Time Frame: 4-6 Weeks Rehabilitation Potential Rehabilitation Potential: Good Anticipated Interventions Patient/Client Instruction: Educate patient on: Condition and Plan of Care For the Purpose of:: To decrease pain, To increase ROM, To improve nutrient delivery to tissue, To improve muscle performance and motor function, To improve ability to perform ADL's, To increase tolerance to activity/condition/position, To improve performance and independence with ADL's, To decrease level of supervision to perform tasks, To improve ability of physical actions for home/community/work/leisure, To improve health of tissue, To decrease soft tissue restriction and To increase flexibility/ROM Therapeutic Exercise to Include: Strength training, Endurance training, Balance training, Body mechanics, Postural training, Flexibilty training, Neuromotor development, Passive ROM, Active ROM, Dynamic Lumbar Stabilization and Scapular Strength/Stabilization For the Purpose of:: To decrease pain, To increase ROM, To improve nutrient delivery to tissue, To improve muscle performance and motor function, To improve ability to perform ADL's, To increase tolerance to activity/condition/position, To decrease level of supervision to perform tasks, To improve ability of physical actions for home/community/work/leisure, To improve health of tissue, To decrease soft tissue restriction and To increase flexibility/ROM Text: Thank you for the opportunity to evaluate your patient. For Medicare and Medicare HMO plans, please review the plan of care and approve it. It will need to be FAXED BACK to us at [phone] for Medicare purposes. For Medicare only, by signing this I certify the plan of care. Please let me know if there are questions or concerns regarding this plan of care. Physician Signature: Date:
--- NOTE | 2024-10-19 10:21 | HP.PTDCSUM ---
Discharge Summary D/C summary: It has been my pleasure to treat JORJE FLOWER referred by JAGUAR Walker, with the diagnosis of Thoracic compression DX T7 and T8 for a total of 7 visit(s). Discharge Date: 10/19/24 Please see the following information for a summary of their discharge status. Subjective Subjective: Pt is better overall. Today she is sore but thinks that she slept wrong because she was out yesterday and took her night time mid day and she was so sleepy and fell asleep sideways on the couch. She has had several days with no pain. The only time she has trouble is picking up her middle daughter. She will continue to do her HEP at home at this time. Pain mid back pain: Pain Intensity (Out of 10): 3 Rib pain: Pain Intensity (Out of 10): 5 Overall Improvement % Improvement: 100 Objective Objective/Function: Pt has full understanding of HEP. Printed out pictures of bridges, pelvic tilt, PT with hip march and knee fall outs, and Quad hip ext for her to try once her ribs are more healed on her own at home. Goals Goal 1:: I HEP Goal Progress: Goal Met Goal 2:: Be able to lift even small things without pain Goal Progress: Goal Met Goal 3:: Be able to sit with upright posture Goal Progress: Goal Met Plan Plan: ### Latex FREE bands only### 2X/ week for 4 weeks for postural exercises, core strength with HEP D/C Information Discharge Comments: DC PT to HEP d/c sentence: If there are questions or concerns regarding this patient's physical therapy, please feel free to call me at [phone]. Thank you for the referral of this patient. Sincerely, Liz Priest, MPT Balance/Gait/Functional tests Balance/Special Test Scores Oswestry Low Back Score: 1 Improvement % Improvement: 100
== END 2024-10-19 11:08 | disposition home or self-care (01) ==
LOC: PT 10:00
PROVIDERS: PCP Family Medicine; Referring Provider Student in an Organized Health Care Education/Training Program; Visit Provider Student in an Organized Health Care Education/Training Program
DX: S22.000D Wedge compression fracture of unspecified thoracic vertebra, subsequent encounter for fracture with routine healing (principal)
CPT/HCPCS: 97110; 97161; 97530